=== PATIENT | female | born 1955 | race Caucasian/White ===

== ENCOUNTER → 2019-12-07 11:00 | Outpatient (BNVA) | payer MEDICARE, SELFPAY | PROVIDERS: Family Provider Family Medicine; PCP Family Medicine; Visit Provider Family Medicine | DX: I10 Essential (primary) hypertension (principal); M19.90 Unspecified osteoarthritis, unspecified site; N95.1 Menopausal and female climacteric states; J44.9 Chronic obstructive pulmonary disease, unspecified; E11.9 Type 2 diabetes mellitus without complications; E78.5 Hyperlipidemia, unspecified | CPT/HCPCS: 80053; 80061; 83036; 85025 ==

== ENCOUNTER → 2020-01-27 14:43 | Outpatient (BNVA) | payer MEDICARE, SELFPAY | PROVIDERS: Family Provider Family Medicine; PCP Family Medicine; Visit Provider Nurse Practitioner Family | DX: R07.81 Pleurodynia (principal) | CPT/HCPCS: 71046; 80053; 85025 ==

== ENCOUNTER → 2020-03-07 11:50 | Outpatient (BNVA) | payer MEDICARE, SELFPAY | PROVIDERS: Family Provider Family Medicine; PCP Family Medicine; Visit Provider Family Medicine | DX: E11.9 Type 2 diabetes mellitus without complications (principal) | CPT/HCPCS: 80053; 83036 ==

== ENCOUNTER → 2020-06-07 11:59 | Outpatient (BNVA) | payer MEDICARE, SELFPAY | PROVIDERS: Family Provider Family Medicine; PCP Family Medicine; Visit Provider Family Medicine | DX: I10 Essential (primary) hypertension (principal); E11.9 Type 2 diabetes mellitus without complications; E78.2 Mixed hyperlipidemia; J44.9 Chronic obstructive pulmonary disease, unspecified; M19.90 Unspecified osteoarthritis, unspecified site | CPT/HCPCS: 80053; 80061; 83036; 84443; 85025 ==

== ENCOUNTER → 2020-09-07 10:00 | Outpatient (BNVA) | payer MEDICARE, SELFPAY | PROVIDERS: Family Provider Family Medicine; PCP Family Medicine; Visit Provider Family Medicine | DX: L70.0 Acne vulgaris (principal); E11.9 Type 2 diabetes mellitus without complications; E78.2 Mixed hyperlipidemia; I10 Essential (primary) hypertension | CPT/HCPCS: 80053; 80061; 83036; 84443; 85025 ==

== ENCOUNTER → 2020-12-07 15:11 | Outpatient (BNVA) | payer MEDICARE, SELFPAY | PROVIDERS: Family Provider Family Medicine; PCP Family Medicine; Visit Provider Family Medicine | DX: I10 Essential (primary) hypertension (principal); J44.9 Chronic obstructive pulmonary disease, unspecified; E11.9 Type 2 diabetes mellitus without complications; E78.2 Mixed hyperlipidemia; M19.90 Unspecified osteoarthritis, unspecified site | CPT/HCPCS: 80053; 80061; 83036; 84443; 85025 ==

== ENCOUNTER → 2021-03-06 11:39 | Outpatient (BNVA) | payer MEDICARE, SELFPAY | PROVIDERS: Family Provider Family Medicine; PCP Family Medicine; Visit Provider Family Medicine | DX: E11.9 Type 2 diabetes mellitus without complications (principal); E78.2 Mixed hyperlipidemia; I10 Essential (primary) hypertension; M19.90 Unspecified osteoarthritis, unspecified site; N95.1 Menopausal and female climacteric states; J44.9 Chronic obstructive pulmonary disease, unspecified | CPT/HCPCS: 80053; 80061; 83036; 84443; 85025 ==

== ENCOUNTER → 2021-09-05 11:45 | Outpatient (BNVA) | payer MEDICARE, SELFPAY | PROVIDERS: Family Provider Family Medicine; PCP Family Medicine; Visit Provider Family Medicine | DX: E11.9 Type 2 diabetes mellitus without complications (principal); E78.5 Hyperlipidemia, unspecified; I10 Essential (primary) hypertension; J01.00 Acute maxillary sinusitis, unspecified; J44.9 Chronic obstructive pulmonary disease, unspecified; N95.1 Menopausal and female climacteric states; M19.90 Unspecified osteoarthritis, unspecified site; E78.2 Mixed hyperlipidemia | CPT/HCPCS: 80053; 80061; 83036; 85025 ==

== ENCOUNTER → 2022-01-02 09:01 | Outpatient (BNVA) | payer MEDICARE, SELFPAY | PROVIDERS: Family Provider Family Medicine; PCP Family Medicine; Visit Provider Family Medicine | DX: E11.9 Type 2 diabetes mellitus without complications (principal); I10 Essential (primary) hypertension; E78.5 Hyperlipidemia, unspecified; M19.90 Unspecified osteoarthritis, unspecified site; J44.9 Chronic obstructive pulmonary disease, unspecified; E78.2 Mixed hyperlipidemia | CPT/HCPCS: 80053; 80061; 83036; 85025 ==

== ENCOUNTER → 2022-04-03 10:34 | Outpatient (BNVA) | payer MEDICARE, SELFPAY | PROVIDERS: Family Provider Family Medicine; PCP Family Medicine; Visit Provider Family Medicine | DX: E11.9 Type 2 diabetes mellitus without complications (principal); E78.2 Mixed hyperlipidemia; I10 Essential (primary) hypertension; M79.10 Myalgia, unspecified site | CPT/HCPCS: 80053; 80061; 83036; 84443; 85025 ==

== ENCOUNTER → 2022-04-13 09:00 | Outpatient (BNVA) | payer MEDICARE, SELFPAY | PROVIDERS: Family Provider Family Medicine; PCP Family Medicine; Visit Provider Nurse Practitioner Family | DX: R07.81 Pleurodynia (principal) | CPT/HCPCS: 71046 ==

== ENCOUNTER → 2022-04-16 10:06 | Outpatient (BNVA) | payer MEDICARE, SELFPAY | PROVIDERS: Family Provider Family Medicine; PCP Family Medicine; Visit Provider Nurse Practitioner Family | DX: J18.9 Pneumonia, unspecified organism (principal) | CPT/HCPCS: 71046 ==

== ENCOUNTER → 2022-07-10 09:42 | Outpatient (BNVA) | payer MEDICARE, SELFPAY | PROVIDERS: Family Provider Family Medicine; PCP Family Medicine; Visit Provider Family Medicine | DX: E78.2 Mixed hyperlipidemia (principal); I10 Essential (primary) hypertension; E11.9 Type 2 diabetes mellitus without complications | CPT/HCPCS: 80053; 80061; 83036; 85025 ==

== ENCOUNTER → 2022-10-03 11:17 | Outpatient (BNVA) | payer MEDICARE, SELFPAY | PROVIDERS: Family Provider Family Medicine; PCP Family Medicine; Visit Provider Family Medicine | DX: E78.2 Mixed hyperlipidemia (principal); E11.9 Type 2 diabetes mellitus without complications; I10 Essential (primary) hypertension | CPT/HCPCS: 80053; 80061; 83036; 84443; 85025 ==

== ENCOUNTER → 2022-12-12 14:57 | Outpatient (BNVA) | payer MEDICARE, SELFPAY | PROVIDERS: Family Provider Family Medicine; PCP Family Medicine; Visit Provider Family Medicine | DX: S60.031A Contusion of right middle finger without damage to nail, initial encounter (principal); M19.041 Primary osteoarthritis, right hand; X58.XXXA Exposure to other specified factors, initial encounter | CPT/HCPCS: 73140 ==

== ENCOUNTER 2022-12-16 07:18 | Emergency (ER) | payer MEDICARE, SELFPAY ==
[2022-12-16 07:23] VITALS: BP 161/100; PULSE 96; RESP 18; TEMP 36.9; O2SAT 96
--- NOTE | 2022-12-16 07:32 | CTR_ITS ---
PROCEDURE INFORMATION: Exam: CTA Head With Contrast, Arteriography Exam date and time: 12/16/2022 7:52 AM Age: 67 years old Clinical indication: Pain; Headache; Additional info: FARFAN TECHNIQUE: Imaging protocol: Computed tomographic angiography of the head with contrast. Exam focused on the arteries. 3D rendering (Not supervised by radiologist): MIP and/or 3D reconstructed images were created by the technologist. Radiation optimization: All CT scans at this facility use at least one of these dose optimization techniques: automated exposure control; mA and/or kV adjustment per patient size (includes targeted exams where dose is matched to clinical indication); or iterative reconstruction. Contrast material: OMNI 350; Contrast volume: 100 ml; Contrast route: INTRAVENOUS (IV); REPORTING DATA: Count of CT and Cardiac NM exams in prior 12 months: This patient has received 0 known CTs and 0 known cardiac nuclear medicine studies in the 12 months prior to the current study. COMPARISON: No relevant prior studies available. RADIATION DOSE METRICS: Total DLP (mGy-cm): 420.68 FINDINGS: ANTERIOR CIRCULATION: Right internal carotid artery: Intracranial segment is patent with no significant stenosis. No aneurysm. Right middle cerebral artery: No occlusion or significant stenosis. No aneurysm. Right anterior cerebral artery: No occlusion or significant stenosis. No aneurysm. Left internal carotid artery: Intracranial segment is patent with no significant stenosis. No aneurysm. Left middle cerebral artery: No occlusion or significant stenosis. No aneurysm. Left anterior cerebral artery: No occlusion or significant stenosis. No aneurysm. POSTERIOR CIRCULATION: Right vertebral artery: No occlusion or significant stenosis. No aneurysm. Left vertebral artery: No occlusion or significant stenosis. No aneurysm. Basilar artery: No occlusion or significant stenosis. No aneurysm. Right posterior cerebral artery: No occlusion or significant stenosis. No aneurysm. Left posterior cerebral artery: No occlusion or significant stenosis. No aneurysm. Brain: No definite mass, mass effect, or midline shift. Cerebral ventricles: No ventriculomegaly. Bones/joints: Unremarkable. No acute fracture. Soft tissues: Unremarkable. PROCEDURE INFORMATION: Exam: CTA Neck With Contrast Exam date and time: 12/16/2022 7:52 AM Age: 67 years old Clinical indication: Pain; Headache; Additional info: FARFAN TECHNIQUE: Imaging protocol: Computed tomographic angiography of the neck with contrast. 3D rendering (Not supervised by radiologist): MIP and/or 3D reconstructed images were created by the technologist. Radiation optimization: All CT scans at this facility use at least one of these dose optimization techniques: automated exposure control; mA and/or kV adjustment per patient size (includes targeted exams where dose is matched to clinical indication); or iterative reconstruction. Contrast material: OMNI 350; Contrast volume: 100 ml; Contrast route: INTRAVENOUS (IV); REPORTING DATA: Count of CT and Cardiac NM exams in prior 12 months: This patient has received 0 known CTs and 0 known cardiac nuclear medicine studies in the 12 months prior to the current study. COMPARISON: CT chest wo con [id number] 11/27/2018 12:39 PM RADIATION DOSE METRICS: Total DLP (mGy-cm): 420.68 FINDINGS: Right common carotid artery: No stenosis. No dissection or occlusion. Right internal carotid artery: No stenosis of the extracranial segment. No dissection or occlusion. Right external carotid artery: No occlusion or stenosis of the origin. Left common carotid artery: No stenosis. No dissection or occlusion. Left internal carotid artery: No stenosis of the extracranial segment. No dissection or occlusion. Left external carotid artery: No occlusion or stenosis of the origin. Right vertebral artery: No stenosis. No dissection or occlusion. Left vertebral artery: No stenosis. No dissection or occlusion. Soft tissues: Normal. No significant soft tissue swelling. Bones/joints: No acute fracture. CT/CT angio headneck* [id number] IMPRESSION: No large vessel stenosis or occlusion. IMPRESSION: No stenosis or occlusion. REFERENCES: NASCET CRITERIA. The degree of stenosis in the cervical segment of the internal carotid artery is based on NASCET criteria. Normal is no stenosis. Mild is less than 50% stenosis. Moderate is 50-69% stenosis. Severe is 70% to 99% stenosis. Total occlusion is no detectable patent lumen.
--- NOTE | 2022-12-16 07:32 | CTR_ITS ---
PROCEDURE INFORMATION: Exam: CT Head Without Contrast Exam date and time: 12/16/2022 7:52 AM Age: 67 years old Clinical indication: Pain; Headache; Additional info: FARFAN TECHNIQUE: Imaging protocol: Computed tomography of the head without contrast. Radiation optimization: All CT scans at this facility use at least one of these dose optimization techniques: automated exposure control; mA and/or kV adjustment per patient size (includes targeted exams where dose is matched to clinical indication); or iterative reconstruction. REPORTING DATA: Count of CT and Cardiac NM exams in prior 12 months: This patient has received 0 known CTs and 0 known cardiac nuclear medicine studies in the 12 months prior to the current study. COMPARISON: No relevant prior studies available. RADIATION DOSE METRICS: Total DLP (mGy-cm): 1202.4 FINDINGS: Brain: There is mild diffuse cerebral atrophy. Patchy areas of hypoattenuation are seen in the deep white matter of the cerebral hemispheres bilaterally compatible with mild deep white matter microvascular disease. Cerebral ventricles: No ventriculomegaly. Paranasal sinuses: Visualized sinuses are unremarkable. No fluid levels. Mastoid air cells: Visualized mastoid air cells are well aerated. Bones/joints: Unremarkable. No acute fracture. Soft tissues: Unremarkable. CT/CT head wo con* [id number] IMPRESSION: There are no acute intracranial findings.
--- NOTE | 2022-12-16 07:33 | ECG_ITS ---
[facility] Test Date: 2022-12-16 Pat Name: Merlyn Angeles Department: Room: Gender: Female Audio/Visual Operator: : 1955 Requested By: Júnior Hoang Order Number: [id number] Arturo MD: Kristian Duke M.D. Measurements Intervals [place] Rate: 90 P: 31 IN: 143 QRS: 29 QRSD: 90 T: 35 QT: 349 QTc: 428 Interpretive Statements SINUS RHYTHM Compared to ECG 01/08/2015 10:30:45 No significant changes Electronically Signed On 12-16-2022 21:07:31 CDT by Kristian Duke M.D. [email or web address] residential [email or web address] private [email or web address]/store/[id number]
--- NOTE | 2022-12-16 07:33 | W.ED.HA ---
HPI - Headache General: Chief Complaint: Headache Stated Complaint: headache Time Seen by Provider: 12/16/22 07:28 Source: patient Mode of arrival: ambulatory Limitations: no limitations History of Present Illness: 67-year-old female states that she started getting a headache last night that is worsened throughout the night states headaches currently 9 out of 10 no history of headaches states she has had some high blood pressure as well as states she is just started a new medication for gout with indomethacin she has not taken any other pain meds denies any neck pain denies any fevers had some nausea denies any vomiting. Associated symptoms: Deny chest pain, fever(s), nausea, rash or vomiting Review of Systems Const: Denies: fever(s), chills or body aches Eyes: Denies: eye discomfort ENMT: Denies: throat pain or dental pain Card: Denies: chest pain Resp: Denies: dyspnea GI: Denies: abdominal pain, nausea, vomiting or diarrhea : Denies: dysuria Musc: Denies: neck pain or back pain Skin/Breast: Denies: rash Neuro: Reports: headache(s) PFSH ED PFSH: Medical History Arthritis Chronic obstructive pulmonary disease Enrolled in chronic care management Gastroesophageal reflux disease Hyperlipidemia Hypertension Lung cancer Dx in 2012. Had right lobectomy in 11/2012. No chemo or radiation tx No pertinent past medical history neghx: thyroid,dvt/pe PCP: Dr. Efrem Collazo/Jacob Type 2 diabetes mellitus without complication, without long-term current use of insulin Surgical History History of section, low transverse 2 sections (both vertical incisions) History of hysterectomy ZAIRA (still has ovaries). Performed due to fibroids and heavy bleeding. Pfannenstiel incision. History of lobectomy of lung (~11/2012) Lobectomy for lung cancer will get more details on treatment/surgery with medical records Family History Grandfather Colon cancer Paternal-- dx age 70's Son Colon cancer dx age 47 Mother Diabetes Hypercholesteremia Hypertension Father Diabetes Hypercholesteremia Heart disease Stroke Hypertension Sister Ovarian cancer dx age 30's Denies family history of Breast cancer Uterine cancer Thyroid disease Social History Smoking and tobacco status: former smoker Substance/Drug Use: never Physical Exam Const: COMMON NORMALS: patient oriented x3 and healthy appearing GENERAL APPEARANCE: in distress HENMT: COMMON NORMALS: normocephalic and atraumatic HEAD & SCALP: normocephalic and atraumatic Eye: COMMON NORMALS: Equal, round and reactive pupils present and EOMs intact bilaterally PUPIL: Yes Equal, round and reactive pupils present Neck/C-Spine: COMMON NORMALS: full ROM, supple and no meningeal signs Chest: COMMONS NORMALS: normal inspection of the chest and normal palpation of entire chest wall Resp: COMMON NORMALS: normal respiratory effort, No retractions, No use of accessory muscles and clear to auscultation bilaterally AUSCULTATION: clear to auscultation bilaterally Cardio: COMMON NORMALS: regular rate, regular rhythm and No murmurs present (Cardio) RATE: regular rate RHYTHM: regular rhythm GI: COMMON NORMALS: Normal to inspection, nondistended, normoactive bowel sounds present, Soft to palpation, non-tender and no masses PALPATION: Yes Soft to palpation Extremity: COMMON NORMALS: normal to inspection and full ROM Neuro: COMMON NORMALS: patient oriented x3, moves all extremities and no focal motor deficits MENINGEAL SIGNS: Yes no meningeal signs Psych: COMMON NORMALS: mental status grossly normal, Normal thought process present and cooperative THOUGHT PROCESS: Normal thought process present Skin: COMMON NORMALS: no rashes or lesions noted and no wounds GENERAL SKIN EXAM: no rashes or lesions noted Course Vital Signs: Vital signs: Vital Signs Temperature 98.5 F 12/16/22 07:23 Pulse Rate 96 12/16/22 07:23 Respiratory Rate 18 12/16/22 07:23 Blood Pressure 183/96 12/16/22 08:48 Pulse Oximetry 95 12/16/22 08:48 Oxygen Delivery Me thod Room Air 12/16/22 08:48 MDM - Headache Medical Decision Making Patient presents here with headache since resolved she has no signs of subarachnoid hemorrhage or meningitis her CT head along with CT angio normal blood works all normal she is stable for discharge she is to follow-up with PCP and return if worsening. Medical Records I reviewed the patient's medical records. Lab Data I reviewed the patient's lab results. 12/16/22 07:45 12/16/22 07:[address] 12/16/22 07:32 IMPRESSION: There are no acute intracranial findings. Head/Neck CTA 12/16/22 07:32 IMPRESSION: No large vessel stenosis or occlusion. IMPRESSION: No stenosis or occlusion. REFERENCES: NASCET CRITERIA. The degree of stenosis in the cervical segment of the internal carotid artery is based on NASCET criteria. Normal is no stenosis. Mild is less than 50% stenosis. Moderate is 50-69% stenosis. Severe is 70% to 99% stenosis. Total occlusion is no detectable patent lumen. Chest X-Ray 12/16/22 08:06 IMPRESSION: Opacities superimposed over the left hemidiaphragm likely representing atelectasis although a left basilar infiltrate and pneumonia cannot be entirely excluded. Laboratory Results WBC 8.4 10^3/uL (4.0-10.0) 12/16/22 07:45 RBC 4.55 10^6/uL (4.1-5.3) 12/16/22 07:45 Hgb 13.3 g/dL (11.5-15.3) 12/16/22 07:45 Hct 39.7 % (37.0-47.0) 12/16/22 07:45 MCV 87.3 fl (81-99) 12/16/22 07:45 MCH 29.2 pg (28.0-34.0) 12/16/22 07:45 MCHC 33.5 g/dL (30.0-36.0) 12/16/22 07:45 RDW 12.5 % (12.1-15.1) 12/16/22 07:45 Plt Count 200 10^3/cmm (130-400) 12/16/22 07:45 MPV 9.6 fL (7.4-10.4) 12/16/22 07:45 Neut % (Auto) 78.4 % 12/16/22 07:45 Lymph % (Auto) 6.9 % 12/16/22 07:45 [place] % (Auto) 13.3 % 12/16/22 07:45 Eos % (Auto) 0.8 % 12/16/22 07:45 Baso % (Auto) 0.2 % 12/16/22 07:45 Neut # (Auto) 6.58 10^3/uL (1.8-7.7) 12/16/22 07:45 Lymph # (Auto) 0.6 10^3/uL (0.8-4.8) L 12/16/22 07:45 [place] # (Auto) 1.1 10^3/uL (0.2-0.9) H 12/16/22 07:45 Eos # (Auto) 0.1 10^3/uL (0.0-0.8) 12/16/22 07:45 Baso # (Auto) 0.0 10^3/uL (0.0-0.1) 12/16/22 07:45 Nucleated RBC % (auto) 0 % 12/16/22 07:45 Nucleated RBCs # 0.0 /100WBC 12/16/22 07:45 Sodium 137 mmol/L (136-145) 12/16/22 07:45 Potassium 3.8 mmol/L (3.5-5.1) 12/16/22 07:45 Chloride 100 mmol/L (98-107) 12/16/22 07:45 Carbon Dioxide 23 mmol/L (22-29) 12/16/22 07:45 Anion Gap 17.8 (5-19) 12/16/22 07:45 BUN 5 mg/dL (8-23) L 12/16/22 07:45 Creatinine 0.4 mg/dL (0.5-0.9) L 12/16/22 07:45 GFR Calculation 159.2 mL/min (90-130) H 12/16/22 07:45 Glucose 126 mg/dL (65-115) H 12/16/22 07:45 Calculated Osmolality 283 mOsm/kg (285-295) L 12/16/22 07:45 Calcium 8.9 mg/dL (8.5-10.5) 12/16/22 07:45 Total Bilirubin 0.4 mg/dL (0.15-1.2) 12/16/22 07:45 AST 22 U/L (0-32) 12/16/22 07:45 ALT 23 U/L (0-33) 12/16/22 07:45 Alkaline Phosphatase 133 U/L (35-105) H 12/16/22 07:45 Total Protein 6.9 g/dL (6.6-8.7) 12/16/22 07:45 Albumin 4.1 g/dL (3.5-5.2) 12/16/22 07:45 Globulin 2.8 g/dL (1.3-4.6) 12/16/22 07:45 EKG Data EKG 1: I personally reviewed and interpreted this EKG as follows: EKG interpretation date: 12/16/22 EKG interpretation time: 07:38 Interpretation: nsr hr [address] or t wave abnormalities qrs 90 qtc 397 Discharge Plan Discharge Patient Disposition: Home Clinical Impression: Headache, Gout Condition: Stable Prescriptions: New hydrocodone-acetaminophen 5-325 mg tablet 1 tab PO Q6H PRN (Reason: pain) Qty: 14 0RF No Action naproxen 500 mg tablet 500 mg PO .every 12 hours PRN (Reason: pain) Qty: 90 1RF albuterol sulfate [Ventolin HFA] 90 mcg/actuation HFA aerosol inhaler 1 inh INHALATION QID Qty: 18 3RF estradiol [Estrace] 0.01 % (0.1 mg/gram) cream 0.5 g VAGINAL .twice weekly Qty: 42.5 3RF rosuvastatin [Crestor] 5 mg tablet 5 mg PO DAILY Qty: 90 2RF Eucrisa 2 % ointment 1 applic TOPICAL BID PRN (Reason: atopic dermatitis) Qty: 100 3RF diclofenac sodium 1 % gel 2 g topical QID Qty: 100 11RF Rx Instructions: apply to single elbow,or hip valsartan 320 mg tablet 320 mg PO DAILY Qty: 90 2RF indomethacin 75 mg capsule, extended release 75 mg PO BID Qty: 30 0RF Discharge Orders: Discharge ED (Routine); Ordered 12/16/22 Ordered By: Júnior Hoang Referrals: Brittani Topete MD [Primary Care Provider] - 1-3 days Discharge Diet: Advance as tolerated Discharge Activity: Resume usual activity Patient Instructions: General Headache (ED) Coding Level of Care Code ED Medical Bill Processor for Trishag Butch
[2022-12-16] MEDS: metoclopramide 5 mg/mL SDV 2 mL 10 MG IVP (07:42)
[2022-12-16] MEDS: diphenhydrAMINE 50 mg/mL SDV 1mL IVP (07:42)
[2022-12-16 07:55] LABS: Basophils % 0.2 %; Eosinophils # 0.1 10^3/uL (0.0-0.8); Eosinophils % 0.8 %; Hematocrit 39.7 % (37.0-47.0); Hemoglobin 13.3 g/dL (11.5-15.3); Lymphocytes # 0.6 10^3/uL (0.8-4.8); Lymphocytes % 6.9 %; Mean Corpuscular HGB Conc 33.5 g/dL (30.0-36.0); Mean Corpuscular Hemoglobin 29.2 pg (28.0-34.0); Mean Corpuscular Volume 87.3 fl (81-99); Mean Platelet Volume 9.6 fL (7.4-10.4); Monocytes # 1.1 10^3/uL (0.2-0.9); Monocytes % 13.3 %; Neutrophils # 6.58 10^3/uL (1.8-7.7); Neutrophils % 78.4 %; Nucleated Red Blood Cells % 0 %; Platelet Count 200 10^3/cmm (130-400); Red Blood Count 4.55 10^6/uL (4.1-5.3); Red Cell Distribution Width 12.5 % (12.1-15.1); White Blood Count 8.4 10^3/uL (4.0-10.0)
[2022-12-16] MEDS: iohexol 350 mg/mL 500 mL Btl (per mL) IV (08:01)
--- NOTE | 2022-12-16 08:06 | XRR_ITS ---
PROCEDURE INFORMATION: Exam: XR Chest Exam date and time: 12/16/2022 8:27 AM Age: 67 years old Clinical indication: Pain; Other: Headache; Additional info: FARFAN TECHNIQUE: Imaging protocol: Radiologic exam of the chest. Views: 1 view. COMPARISON: CR XR chest 2V* [id number] 04/16/2022 10:11 AM FINDINGS: Lungs: There are opacities at superimposed over the left hemidiaphragm likely representing atelectasis. A left basilar infiltrate and pneumonia cannot be entirely excluded. Pleural spaces: Unremarkable. No pleural effusion. No pneumothorax. Heart/Mediastinum: Unremarkable. No cardiomegaly. Bones/joints: Unremarkable. XR/XR chest 1V portable [id number] IMPRESSION: Opacities superimposed over the left hemidiaphragm likely representing atelectasis although a left basilar infiltrate and pneumonia cannot be entirely excluded.
[2022-12-16 08:07] VITALS: O2SAT 95
[2022-12-16 08:12] LABS: Alanine Aminotransferase 23 U/L (0-33); Albumin Level 4.1 g/dL (3.5-5.2); Alkaline Phosphatase 133 U/L (35-105); Anion Gap 17.8 (5-19); Aspartate Amino Transferase 22 U/L (0-32); Blood Urea Nitrogen 5 mg/dL (8-23); Calcium 8.9 mg/dL (8.5-10.5); Carbon Dioxide 23 mmol/L (22-29); Chloride 100 mmol/L (98-107); Creatinine Clr Calc Pharmacy 73.1966; Globulin 2.8 g/dL (1.3-4.6); Glomerular Filtration Rate 159.2 mL/min (90-130); Glucose 126 mg/dL (65-115); Osmolality Calculated 283 mOsm/kg (285-295); Potassium 3.8 mmol/L (3.5-5.1); Sodium 137 mmol/L (136-145); Total Bilirubin 0.4 mg/dL (0.15-1.2); Total Protein 6.9 g/dL (6.6-8.7)
[2022-12-16] MEDS: hyDRALAzine 20 mg/mL INJ 1 mL 10 MG IVP (08:18)
[2022-12-16] MEDS: ketorolac 30 mg/mL INJ 15 MG IVP (08:45)
[2022-12-16] MEDS: morphine 4 mg/mL SDV 1 mL IVP (08:45)
[2022-12-16] MEDS: ondansetron 2 mg/ML SDV 2 mL 4 MG IVP (08:45)
[2022-12-16 08:48] VITALS: BP 183/96; O2SAT 95
== END 2022-12-16 09:29 | disposition home or self-care (01) ==
PROVIDERS: Emergency Provider Emergency Medicine; PCP Family Medicine
DX: R51.9 Headache, unspecified (principal); M10.9 Gout, unspecified; Z87.891 Personal history of nicotine dependence; Z90.2 Acquired absence of lung [part of]; J44.9 Chronic obstructive pulmonary disease, unspecified; E78.5 Hyperlipidemia, unspecified; I10 Essential (primary) hypertension; E11.9 Type 2 diabetes mellitus without complications; Z85.118 Personal history of other malignant neoplasm of bronchus and lung
CPT/HCPCS: 70450; 70496; 70498; 71045; 80053; 85025; 93005; 96374; 96375; 99285; J0360; J1200; J1885; J2270; J2405; J2765; Q9967

== ENCOUNTER → 2022-12-18 15:39 | Outpatient (BNVA) | payer MEDICARE, SELFPAY | PROVIDERS: PCP Family Medicine; Visit Provider Family Medicine | DX: J98.8 Other specified respiratory disorders (principal); Z20.822 Contact with and (suspected) exposure to COVID-19 | CPT/HCPCS: 71046; 87400; 87426 ==

== ENCOUNTER → 2023-01-25 12:08 | Outpatient (BNVA) | payer MEDICARE, SELFPAY | PROVIDERS: PCP Family Medicine; Visit Provider Family Medicine | DX: E11.9 Type 2 diabetes mellitus without complications (principal); E78.5 Hyperlipidemia, unspecified; I10 Essential (primary) hypertension; M19.90 Unspecified osteoarthritis, unspecified site; J44.9 Chronic obstructive pulmonary disease, unspecified; N95.1 Menopausal and female climacteric states | CPT/HCPCS: 80053; 80061; 83036; 84443; 85025 ==

== ENCOUNTER 2023-04-05 11:21 | Emergency (ER) | payer MEDICARE, SELFPAY ==
[2023-04-05 11:49] VITALS: BMI 29.9
[2023-04-05 11:52] VITALS: BP 192/117; PULSE 100; RESP 18; TEMP 36.7; O2SAT 98
--- NOTE | 2023-04-05 11:52 | ECG_ITS ---
[facility] Test Date: 2023-04-05 Pat Name: Merlyn Angeles Department: Room: Gender: Female Financial Planner: : 1955 Requested By: Luan Culver Order Number: [id number] Arturo MD: Lacy Hernández M.D. Measurements Intervals [place] Rate: 80 P: 58 ND: 147 QRS: 60 QRSD: 95 T: 39 QT: 360 QTc: 416 Interpretive Statements SINUS RHYTHM Compared to ECG 12/16/2022 07:38:21 No significant changes Electronically Signed On 04-05-2023 13:31:41 CDT by Lacy Hernández M.D. [id number]
--- NOTE | 2023-04-05 11:55 | XR_ITS ---
WS: [id number] Exam: XR chest 1V portable [id number] Date/Time of Exam: 04/05/2023 11:55 AM Reason For Exam: htn chest pain Comparison 12/18/2022. LEFT basal pleural effusion noted with compressive atelectasis. The lungs are otherwise clear. No pne umothorax. Cardiomediastinal silhouette is unremarkable. Surgical clips at the RIGHT hilum. Bony stru ctures are intact. Probable hiatal hernia. IMPRESSION: 1. Small LEFT basal pleural effusion with compressive atelectasis. 2. Probable hiatal hernia.
[2023-04-05 12:07] LABS: Basophils % 0.5 %; Eosinophils # 0.2 10^3/uL (0.0-0.8); Hematocrit 43.3 % (36-47); Lymphocytes # 1.9 10^3/uL (0.8-4.8); Lymphocytes % 23.2 %; Mean Corpuscular HGB Conc 33.5 g/dL (30-55); Mean Corpuscular Hemoglobin 29.6 pg (27-33); Mean Corpuscular Volume 88.4 fl (85-98); Mean Platelet Volume 9.8 fL (7.4-10.4); Monocytes # 0.7 10^3/uL (0.2-0.9); Monocytes % 8.6 %; Neutrophils # 5.18 10^3/uL (1.8-7.7); Neutrophils % 64.5 %; Nucleated Red Blood Cells % 0 %; Platelet Count 225 10^3/cmm (157-399); Red Cell Distribution Width 12.9 % (12.1-15.1); White Blood Count 8.03 10^3/uL (3.29-11.43)
--- NOTE | 2023-04-05 12:10 | W.ED.GENADLT ---
HPI - General Adult General: Chief complaint: General Medical Stated complaint: High bloodpressure, Gisselle Pearson sent Time Seen by Provider: 04/05/23 11:54 History of Present Illness: Patient arrives from [facility] office for high blood pressure with a headache dizziness shakiness and blurriness. Denies chest pain at this time but she says she has been dealing with a blood pressure medicine ups and downs with a down still being high approximately 130. Patient is on valsartan 320 mg 1 pill once a day and has been taking all of her medications and not missing any doses. Patient admits that sometimes even taking part of another pill when her blood pressure stays high. Review of Systems General: Reports: 10 or more systems reviewed and unremarkable except in HPI and below PFSH ED PFSH: Medical History Arthritis Chronic obstructive pulmonary disease Enrolled in chronic care management Gastroesophageal reflux disease Hyperlipidemia Hypertension Lung cancer Dx in 2012. Had right lobectomy in 11/2012. No chemo or radiation tx No pertinent past medical history neghx: thyroid,dvt/pe PCP: Dr. Efrem Collazo/Jacob Type 2 diabetes mellitus without complication, without long-term current use of insulin Surgical History History of section, low transverse 2 sections (both vertical incisions) History of hysterectomy ZAIRA (still has ovaries). Performed due to fibroids and heavy bleeding. Pfannenstiel incision. History of lobectomy of lung (~11/2012) Lobectomy for lung cancer will get more details on treatment/surgery with medical records Family History Grandfather Colon cancer Paternal-- dx age 70's Son Colon cancer dx age 47 Mother Diabetes Hypercholesteremia Hypertension Father Diabetes Hypercholesteremia Heart disease Stroke Hypertension Sister Ovarian cancer dx age 30's Denies family history of Breast cancer Uterine cancer Thyroid disease Physical Exam Const: COMMON NORMALS: no acute distress, average body habitus, patient oriented x3, no limitations, healthy appearing, alert and well nourished HENMT: COMMON NORMALS: normocephalic, atraumatic, hearing grossly normal bilaterally, external ears normal, Normal external nose present and moist oral mucous membranes HEAD & SCALP: normocephalic and atraumatic NOSE: Normal external nose present EXTERNAL EAR: Yes external ears normal Eye: COMMON NORMALS: Equal, round and reactive pupils present, EOMs intact bilaterally, conjunctivae normal and no scleral icterus CONJUNCTIVA: Yes conjunctivae normal PUPIL: Yes Equal, round and reactive pupils present Neck/C-Spine: COMMON NORMALS: full ROM, no lymphadenopathy, supple, no meningeal signs, no JVD and Thyroid normal THYROID: Thyroid normal Lymph: LYMPHATIC: no lymphadenopathy noted Chest: COMMONS NORMALS: normal inspection of the chest and normal palpation of entire chest wall Resp: COMMON NORMALS: normal respiratory effort, No retractions, No use of accessory muscles and clear to auscultation bilaterally AUSCULTATION: clear to auscultation bilaterally Cardio: COMMON NORMALS: no JVD, regular rate, regular rhythm, S1 normal heart sound present, S2 normal heart sound present, No gallops present (Cardio), No clicks present (Cardio), No murmurs present (Cardio) and No rub (Cardio) RATE: regular rate RHYTHM: regular rhythm HEART SOUNDS: S1 normal heart sound present and S2 normal heart sound present GI: COMMON NORMALS: Normal to inspection, nondistended, normoactive bowel sounds present, Soft to palpation, non-tender, No hepatosplenomegaly present and no masses PALPATION: Yes Soft to palpation and Yes No hepatosplenomegaly present : COMMON NORMALS: Yes no CVA tenderness BLADDER/KIDNEY EXAM: Yes no CVA tenderness Back/Pelvis: COMMON NORMALS: no CVA tenderness Neuro: COMMON NORMALS: patient oriented x3 SENSORIUM/ORIENTATION: Yes alert MENINGEAL SIGNS: Yes no meningeal signs Course Vital Signs: Vital signs: Vital Signs Temperature 98.0 F 04/05/23 11:52 Pulse Rate 100 04/05/23 11:52 Respiratory Rate 18 04/05/23 11:52 Blood Pressure 194/126 04/05/23 13:08 Pulse Oximetry 98 04/05/23 11:52 Oxygen Delivery Me thod Room Air 04/05/23 11:52 [facility] - General Adult Medical Decision Making Patient sent over here from her family practice doctor with hypertensive crisis that included headaches dizziness shakiness. Cardiac work-up was obtained. All of which essentially was benign. Patient was given 20 mg of hydralazine and 0.1 mg clonidine and per patient's blood pressure improved to 136/85. Patient be discharged to home to follow back up with her PCP. Patient also be discharged on clonidine 0.1 mg to take when her blood pressure is greater than 150 systolic. Differential Diagnosis Blood pressure, congestive heart failure, angina, shortness of breath Medical Records I reviewed the patient's medical records. Lab Data I reviewed the patient's lab results. 04/05/23 11:55 04/05/23 11:55 Laboratory Results WBC 8.03 10^3/uL (3.29-11.43) 04/05/23 11:55 RBC 4.90 10^6/uL (3.85-5.65) 04/05/23 11:55 Hgb 14.50 g/dL (11.27-16.99) 04/05/23 11:55 Hct 43.3 % (36-47) 04/05/23 11:55 MCV 88.4 fl (85-98) 04/05/23 11:55 MCH 29.6 pg (27-33) 04/05/23 11:55 MCHC 33.5 g/dL (30-55) 04/05/23 11:55 RDW 12.9 % (12.1-15.1) 04/05/23 11:55 Plt Count 225 10^3/cmm (157-399) 04/05/23 11:55 MPV 9.8 fL (7.4-10.4) 04/05/23 11:55 Neut % (Auto) 64.5 % 04/05/23 11:55 Lymph % (Auto) 23.2 % 04/05/23 11:55 [place] % (Auto) 8.6 % 04/05/23 11:55 Eos % (Auto) 3.0 % 04/05/23 11:55 Baso % (Auto) 0.5 % 04/05/23 11:55 Neut # (Auto) 5.18 10^3/uL (1.8-7.7) 04/05/23 11:55 Lymph # (Auto) 1.9 10^3/uL (0.8-4.8) 04/05/23 11:55 [place] # (Auto) 0.7 10^3/uL (0.2-0.9) 04/05/23 11:55 Eos # (Auto) 0.2 10^3/uL (0.0-0.8) 04/05/23 11:55 Baso # (Auto) 0.0 10^3/uL (0.0-0.1) 04/05/23 11:55 Nucleated RBC % (auto) 0 % 04/05/23 11:55 Nucleated RBCs # 0.0 /100WBC 04/05/23 11:55 Sodium 142 mmol/L (136-145) 04/05/23 11:55 Potassium 4.1 mmol/L (3.5-5.1) 04/05/23 11:55 Chloride 107 mmol/L (98-107) 04/05/23 11:55 Carbon Dioxide 26 mmol/L (22-29) 04/05/23 11:55 Anion Gap 13.1 (5-19) 04/05/23 11:55 BUN 14 mg/dL (8-23) 04/05/23 11:55 Creatinine 0.5 mg/dL (0.5-0.9) 04/05/23 11:55 GFR Calculation 123.1 mL/min (90-130) 04/05/23 11:55 Glucose 80 mg/dL (65-115) 04/05/23 11:55 Calculated Osmolality 293 mOsm/kg (285-295) 04/05/23 11:55 Calcium 9.5 mg/dL (8.5-10.5) 04/05/23 11:55 Total Bilirubin 0.4 mg/dL (0.15-1.2) 04/05/23 11:55 AST 21 U/L (0-32) 04/05/23 11:55 ALT 26 U/L (0-33) 04/05/23 11:55 Alkaline Phosphatase 136 U/L (35-105) H 04/05/23 11:55 Troponin T Baseline 12 ng/L (0-10) H 04/05/23 11:55 Troponin T 120 Minute 8.48 ng/L (0-10) 04/05/23 13:37 Total Protein 6.8 g/dL (6.6-8.7) 04/05/23 11:55 Albumin 4.5 g/dL (3.5-5.2) 04/05/23 11:55 Globulin 2.3 g/dL (1.3-4.6) 04/05/23 11:55 Discharge Plan Discharge Patient Disposition: Home Clinical Impression: Hypertension Condition: Stable Prescriptions: New clonidine HCl 0.1 mg tablet 0.1 mg PO Q8H PRN (Reason: For blood pressure greater than 150 systolic) Qty: 30 0RF No Action tizanidine 4 mg tablet 4 mg PO Q8H PRN (Reason: muscle spasticity) Qty: 20 0RF estradiol [Estrace] 0.01 % (0.1 mg/gram) cream 0.5 g VAGINAL .twice weekly Qty: 42.5 3RF Eucrisa 2 % ointment 1 applic TOPICAL BID PRN (Reason: atopic dermatitis) Qty: 100 3RF CoQ-10 100 mg Capsule 100 mg PO DAILY valsartan 320 mg tablet 320 mg PO BEDTIME@19 diclofenac sodium 75 mg tablet,delayed release (DR/EC) 75 mg PO BID Rx Instructions: . no naproxen or nsaids Ventolin HFA 90 mcg/actuation HFA aerosol inhaler 1 inh INHALATION QID PRN (Reason: Shortness Of Breath) Crestor 5 mg tablet 5 mg PO BEDTIME@19 diclofenac sodium 1 % gel 2 g topical QID PRN (Reason: Pain) Rx Instructions: apply to single elbow,or hip Discharge Orders: Discharge ED (Routine); Ordered 04/05/23 Ordered By: Luan Culver Referrals: Brittani Topete MD [Primary Care Provider] - 1 week Patient Instructions: Hypertension (ED) Activity Restrictions/Additional Instructions: He had been prescribed clonidine 0.1 mg tablets to take if your blood pressures top number is greater than 150. You may take this up to 3 times a day as needed. Please keep a blood pressure log and take it to your family practice doctor at your next visit. Please call their office and set up an appointment within the next 7 days. Continue taking all your other medicine as previously prescribed. Coding Level of Care Code ED Various Exceptionalities Teacher for Kandace Rae
[2023-04-05 12:42] LABS: Troponin(5th) Baseline 12 ng/L (0-10)
[2023-04-05 12:44] LABS: Alanine Aminotransferase 26 U/L (0-33); Albumin Level 4.5 g/dL (3.5-5.2); Alkaline Phosphatase 136 U/L (35-105); Anion Gap 13.1 (5-19); Aspartate Amino Transferase 21 U/L (0-32); Blood Urea Nitrogen 14 mg/dL (8-23); Calcium 9.5 mg/dL (8.5-10.5); Carbon Dioxide 26 mmol/L (22-29); Chloride 107 mmol/L (98-107); Globulin 2.3 g/dL (1.3-4.6); Glomerular Filtration Rate 123.1 mL/min (90-130); Glucose 80 mg/dL (65-115); Osmolality Calculated 293 mOsm/kg (285-295); Potassium 4.1 mmol/L (3.5-5.1); Sodium 142 mmol/L (136-145); Total Bilirubin 0.4 mg/dL (0.15-1.2); Total Protein 6.8 g/dL (6.6-8.7)
--- NOTE | 2023-04-05 12:58 | ECG_ITS ---
[facility] Test Date: 2023-04-05 Pat Name: Merlyn Angeles Department: Room: Gender: Female Doffer: : 1955 Requested By: Luan Culver Order Number: [id number] Arturo MD: Lacy Hernández M.D. Measurements Intervals [place] Rate: 100 P: 71 NE: 154 QRS: 50 QRSD: 98 T: 59 QT: 341 QTc: 440 Interpretive Statements SINUS TACHYCARDIA POSSIBLE LEFT ATRIAL ENLARGEMENT [-0.1mV P-WAVE IN V1/V2] INCOMPLETE RIGHT BUNDLE BRANCH BLOCK Compared to ECG 12/16/2022 07:38:21 Incomplete right bundle-branch block now present Sinus rhythm no longer present Electronically Signed On 04-05-2023 13:02:30 CDT by Lacy Hernández M.D. [id number]
[2023-04-05 13:08] VITALS: BP 194/126
[2023-04-05] MEDS: cloNIDine 0.1 mg Tablet PO (13:08)
[2023-04-05] MEDS: hyDRALAzine 20 mg/mL INJ 1 mL IVP (13:09)
[2023-04-05 14:30] LABS: Troponin 5 2HR 8.48 ng/L (0-10); Troponin 5 2HR Delta -3.52 ABS# (0-10)
[2023-04-05 14:47] VITALS: BP 150/60; PULSE 96
[2023-04-08 11:36] LABS: Glucose Point of Care 110 mg/dL (70-110)
== END 2023-04-05 14:48 | disposition home or self-care (01) ==
PROVIDERS: Emergency Provider Emergency Medicine; PCP Family Medicine
DX: I10 Essential (primary) hypertension (principal); J44.9 Chronic obstructive pulmonary disease, unspecified; E78.5 Hyperlipidemia, unspecified; E11.9 Type 2 diabetes mellitus without complications; Z85.118 Personal history of other malignant neoplasm of bronchus and lung
CPT/HCPCS: 36415; 36416; 71045; 80053; 82962; 84484; 85025; 93005; 96374; 99285; J0360

== ENCOUNTER → 2023-04-26 10:45 | Outpatient (BNVA) | payer MEDICARE, SELFPAY | PROVIDERS: PCP Family Medicine; Visit Provider Family Medicine | DX: E11.9 Type 2 diabetes mellitus without complications (principal); I10 Essential (primary) hypertension | CPT/HCPCS: 80053; 83036 ==

== ENCOUNTER → 2023-07-15 11:22 | Outpatient (BNVA) | payer MEDICARE, SELFPAY | PROVIDERS: PCP Family Medicine; Visit Provider Nurse Practitioner Family | DX: E11.9 Type 2 diabetes mellitus without complications (principal); I10 Essential (primary) hypertension; E78.2 Mixed hyperlipidemia | CPT/HCPCS: 80053; 80061; 83036; 85025 ==

== ENCOUNTER → 2023-10-09 10:32 | Outpatient (BNVA) | payer MEDICARE, SELFPAY | PROVIDERS: PCP Family Medicine; Visit Provider Family Medicine | DX: I10 Essential (primary) hypertension (principal); E11.9 Type 2 diabetes mellitus without complications; C34.90 Malignant neoplasm of unspecified part of unspecified bronchus or lung; E78.2 Mixed hyperlipidemia | CPT/HCPCS: 80053; 83036; 84443; 85025 ==

== ENCOUNTER → 2024-01-13 10:33 | Outpatient (BNVA) | payer MEDICARE, SELFPAY | PROVIDERS: PCP Family Medicine; Visit Provider Family Medicine | DX: L98.9 Disorder of the skin and subcutaneous tissue, unspecified (principal); E78.2 Mixed hyperlipidemia; I10 Essential (primary) hypertension; E11.9 Type 2 diabetes mellitus without complications; N95.1 Menopausal and female climacteric states; J44.9 Chronic obstructive pulmonary disease, unspecified | CPT/HCPCS: 80053; 80061; 83036; 84443; 85025 ==

== ENCOUNTER → 2024-04-14 13:22 | Outpatient (BNVA) | payer MEDICARE, SELFPAY | PROVIDERS: PCP Family Medicine; Visit Provider Family Medicine | DX: I10 Essential (primary) hypertension (principal); E78.2 Mixed hyperlipidemia | CPT/HCPCS: 80053; 80061; 84443; 85025 ==

== ENCOUNTER 2024-05-10 13:37 | Emergency (ER) | payer MEDICARE, SELFPAY ==
[2024-05-10] VITALS (7 sets, daily range): BP systolic 134–176; BP diastolic 89–102; PULSE 79–94; RESP 18; TEMP 36.7; O2SAT 96–100; BMI 28.6
--- NOTE | 2024-05-10 13:50 | ECG_ITS ---
[facility] Test Date: 2024-05-10 Pat Name: Merlyn Angeles Department: Room: Gender: Female Senior Hadoop Developer: : 1955 Requested By: Luan Culver Order Number: [id number] Arturo MD: Kristian Duke M.D. Measurements Intervals [place] Rate: 87 P: 37 HI: 163 QRS: 7 QRSD: 104 T: 38 QT: 365 QTc: 441 Interpretive Statements SINUS RHYTHM Compared to ECG 04/05/2023 12:58:23 Sinus tachycardia no longer present Incomplete right bundle-branch block no longer present Electronically Signed On 05-10-2024 22:41:16 CDT by Kristian Duke M.D. [id number]
--- NOTE | 2024-05-10 13:50 | XRR_ITS ---
PROCEDURE INFORMATION: Exam: XR Chest Exam date and time: 05/10/2024 1:57 PM Age: 68 years old Clinical indication: Pain; Shortness of breath; Chest pressure; Additional info: Chest pain TECHNIQUE: Imaging protocol: Radiologic exam of the chest. Views: 1 view. COMPARISON: CR XR chest 1V portable [id number] 04/05/2023 12:01 PM FINDINGS: Lungs: See Heart/Mediastinum finding. Pleural spaces: Unremarkable. No pleural effusion. No pneumothorax. Heart/Mediastinum: There is a suggestion of air-filled tubular vertical structure in the midline which may represent dilated esophagus. Considerations include reflux disease however distal esophageal obstruction cannot be excluded. Additional esophageal assessment should be considered. Cardiac silhouette is somewhat magnified by technique but is probably mildly enlarged. No obvious vascular congestion. Ill-defined opacity along the left cardiac border is noted which may have been present on prior exam. This could represent small atelectasis/pneumonia however neoplastic process cannot be excluded. CT correlation may be helpful. Right lung is clear. Right hilar surgical clips are again noted. Bones/joints: No acute findings. XR/XR chest 1V portable [id number] IMPRESSION: 1. Left basilar opacity adjacent to left heart border. See discussion above. 2. Probably dilated air-filled esophagus. See discussion above. Follow up assessment should be considered.
--- NOTE | 2024-05-10 14:28 | ED_ITS ---
Documented by User: Luan Culver DO 05/10/24 14:29 HPI - Chest Pain 2 General: Chief Complaint: Chest Pain Stated Complaint: SOB - COPD, Sharp pains Time Seen by Provider: 05/10/24 13:51 History of Present Illness: Patient presents to the ER with complaints of shortness of breath chest pain anxiety. Has been having symptoms since about 1:00 this morning. Patient said it started in her left shoulder blade area and wraps around to her left breast area. She tried heating pad which made it a little bit better but then it came back she tried a hot shower which made it worse. She does have a history of pleurisy and she said this feels somewhat like it. Is gotten worse throughout the day. Patient does states has been having fever and chills, and a cough. Related Data Home Medications Medication Instructions Recorded Confirmed coenzyme Q10 100 mg capsule 100 mg PO DAILY 04/05/23 04/21/24 (CoQ-10) Previous Rx's Medication Instructions Recorded diclofenac sodium 1 % topical gel 2 g topical QID PRN Pain #100 grams 01/13/24 diclofenac sodium 75 mg See Rx Instructions .Route 01/13/24 tablet,delayed release .COMPLEX #60 tabs albuterol sulfate 90 mcg/actuation 1 inh inhalation QID PRN Shortness 04/14/24 aerosol inhaler (Ventolin HFA) Of Breath #18 grams amlodipine 2.5 mg tablet See Rx Instructions .Route 04/14/24 .COMPLEX #90 tabs clonidine HCl 0.1 mg tablet 0.1 mg PO Q8H PRN For blood 04/14/24 pressure greater than 150 systolic #30 tabs estradiol 0.01% (0.1 mg/gram) 0.5 g vaginal .twice weekly #42.5 04/14/24 vaginal cream (Estrace) grams fluticasone propionate 115 2 puff inhalation BID #12 grams 04/14/24 mcg-salmeterol 21 mcg/actuation HFA inhaler (Advair HFA) rosuvastatin 10 mg tablet 10 mg PO DAILY #90 tabs 04/14/24 valsartan 320 mg tablet 320 mg PO BEDTIME@19 #90 tabs 04/14/24 azithromycin 250 mg tablet See Rx Instructions PO .COMPLEX #6 05/10/24 tabs lansoprazole 30 mg capsule,delayed 30 mg PO DAILY #30 caps 05/10/24 release (Prevacid) sucralfate 1 gram tablet 1 g PO TID 4 weeks #84 tabs 05/10/24 Allergies Allergy/AdvReac Type Severity Reaction Status Date / Time codeine Allergy rash Verified 05/10/24 13:47 Penicillins Allergy rash and Verified 05/10/24 13:47 looses taste Sulfa (Sulfonamide Allergy rash Verified 05/10/24 13:47 Antibiotics) Review of Systems 2 General: Reports: 10 or more systems reviewed and unremarkable except in HPI and below PFSH ED 2 PFSH: Medical History No pertinent past medical history neghx: thyroid,dvt/pe PCP: Dr. Efrem Collazo/[facility] Lung cancer Dx in 2012. Had right lobectomy in 11/2012. No chemo or radiation tx Type 2 diabetes mellitus without complication, without long-term current use of insulin Chronic obstructive pulmonary disease Hyperlipidemia Arthritis Gastroesophageal reflux disease Hypertension Enrolled in chronic care management Surgical History History of hysterectomy ZAIRA (still has ovaries). Performed due to fibroids and heavy bleeding. Pfannenstiel incision. History of section, low transverse 2 sections (both vertical incisions) History of lobectomy of lung (~11/2012) Lobectomy for lung cancer will get more details on treatment/surgery with medical records Family History Grandfather Colon cancer Paternal-- dx age 70's Son Colon cancer dx age 47 Mother Diabetes Hypercholesteremia Hypertension Father Diabetes Hypercholesteremia Heart disease Stroke Hypertension Sister Ovarian cancer dx age 30's Denies family history of Breast cancer Uterine cancer Thyroid disease Social History Smoking and tobacco/nicotine status: never used tobacco/nicotine Physical Exam 2 Const: COMMON NORMALS: no acute distress, average body habitus, patient oriented x3, no limitations, healthy appearing, alert and well nourished HENMT: COMMON NORMALS: normocephalic, atraumatic, hearing grossly normal bilaterally, external ears normal, Normal external nose present and moist oral mucous membranes HEAD & SCALP: normocephalic and atraumatic NOSE: Normal external nose present EXTERNAL EAR: Yes external ears normal Neck/C-Spine: COMMON NORMALS: full ROM, no lymphadenopathy, supple, no meningeal signs, no JVD and Thyroid normal THYROID: Thyroid normal Chest: COMMONS NORMALS: normal inspection of the chest; negative for normal palpation of entire chest wall (Tenderness with palpation left anterior chest wall) Resp: COMMON NORMALS: normal respiratory effort, No retractions, No use of accessory muscles and clear to auscultation bilaterally AUSCULTATION: clear to auscultation bilaterally Cardio: COMMON NORMALS: no JVD, regular rate, regular rhythm, S1 normal heart sound present, S2 normal heart sound present, No gallops present (Cardio), No clicks present (Cardio), No murmurs present (Cardio) and No rub (Cardio) R ATE: regular rate RHYTHM: regular rhythm HEART SOUNDS: S1 normal heart sound present and S2 normal heart sound present GI: COMMON NORMALS: Normal to inspection, nondistended, normoactive bowel sounds present, Soft to palpation, non-tender, No hepatosplenomegaly present and no masses PALPATION: Yes Soft to palpation and Yes No hepatosplenomegaly present Neuro: COMMON NORMALS: patient oriented x3 SENSORIUM/ORIENTATION: Yes alert MENINGEAL SIGNS: Yes no meningeal signs Course 2 Vital Signs: Vital signs: Vital Signs Temperature 98.0 F 05/10/24 13:43 Pulse Rate 88 05/10/24 20:34 Respiratory Rate 18 05/10/24 13:43 Blood Pressure 139/92 05/10/24 20:34 Pulse Oximetry 96 05/10/24 20:34 Oxygen Delivery Me thod Room Air 05/10/24 13:43 MDM - Chest Pain Differential Diagnosis Unlikely acute massive pulmonary embolism, acute respiratory failure, acute myocardial infarction, cardiac arrest or sudden cardiac Medical Records I reviewed the patient's medical records. Lab Data I reviewed the patient's lab results. 05/10/24 15:26 05/10/24 15:26 Radiology Impressions Chest X-Ray 05/10/24 13:50 IMPRESSION: 1. Left basilar opacity adjacent to left heart border. See discussion above. 2. Probably dilated air-filled esophagus. See discussion above. Follow up assessment should be considered. Chest CTA 05/10/24 15:53 IMPRESSION: 1. Minimal peribronchial thickening and clustered tree-in-bud nodular density in the left upper lobe suggesting bronchiolitis as described. No lung consolidation or large round ground-glass opacity. 2. No acute PE. 3. Hiatal hernia and esophageal findings. See discussion above. 4. Probable hepatic steatosis. Laboratory Results WBC 9.50 10^3/uL (3.29-11.43) 05/10/24 15: RBC 4.43 10^6/uL (3.85-5.65) 05/10/24 15:26 Hgb 13.20 g/dL (11.27-16.99) 05/10/24 15: Hct 39.7 % (36-47) 05/10/24 15: MCV 89.6 fl (85-98) 05/10/24 15: MCH 29.8 pg (27-33) 05/10/24 15: MCHC 33.2 g/dL (30-55) 05/10/24 15: RDW 12.0 % (12.1-15.1) L 05/10/24 15: Plt Count 247 10^3/cmm (157-399) 05/10/24 15: MPV 9.3 fL (7.4-10.4) 05/10/24 15: Neut % (Auto) 71.5 % 05/10/24 15: Lymph % (Auto) 18.0 % 05/10/24 15: [place] % (Auto) 8.1 % 05/10/24: Eos % (Auto) 1.8 % 05/10/24: Baso % (Auto) 0.4 % 05/10/24: Neut # (Auto) 6.79 10^3/uL (1.8-7.7) 05/10/24 15: Lymph # (Auto) 1.7 10^3/uL (0.8-4.8) 05/10/24: [place] # (Auto) 0.8 10^3/uL (0.2-0.9) 05/10/24 15: Eos # (Auto) 0.2 10^3/uL (0.0-0.8) 05/10/24: Baso # (Auto) 0.0 10^3/uL (0.0-0.1) 05/10/24 15:26 Nucleated RBC % (auto) 0 % 05/10/24 15:26 Nucleated RBCs # 0.0 /100WBC 05/10/24 15:26 Sodium 141 mmol/L (136-145) 05/10/24 15:26 Potassium 3.3 mmol/L (3.5-5.1) L 05/10/24 15:26 Chloride 103 mmol/L (98-107) 05/10/24 15:26 Carbon Dioxide 27 mmol/L (22-29) 05/10/24 15:26 Anion Gap 14.3 (5-19) 05/10/24 15:26 BUN 9 mg/dL (8-23) 05/10/24 15:26 Creatinine 0.4 mg/dL (0.5-0.9) L 05/10/24 15:26 GFR Calculation 158.7 mL/min (90-130) H 05/10/24 15:26 Glucose 120 mg/dL (65-115) H 05/10/24 15:26 Calculated Osmolality 292 mOsm/kg (285-295) 05/10/24 15:26 Calcium 8.9 mg/dL (8.5-10.5) 05/10/24 15:26 Troponin T Baseline 8 ng/L (0-10) 05/10/24 15:26 Troponin T 120 Minute 6.83 ng/L (0-10) 05/10/24 18:27 Delta Troponin T -1.17 ABS# (0-10) L 05/10/24 18:27 All radiology interpretation(s) finalized by discharge Discharge Plan Discharge Patient Disposition: Home Clinical Impression: Bronchiolitis, Esophagitis Condition: Stable Prescriptions: New sucralfate 1 gram tablet 1 g PO TID 28 Days Qty: 84 0RF lansoprazole [Prevacid] 30 mg capsule,delayed release(DR/EC) 30 mg PO DAILY Qty: 30 0RF azithromycin 250 mg tablet See Rx Instructions .ROUTE .COMPLEX Qty: 6 0RF Rx Instructions: For 250 mg dose pack: take 500 mg today (day 1), then 250 mg for 4 days (days 2-5) No Action diclofenac sodium 75 mg tablet,delayed release (DR/EC) See Rx Instructions .ROUTE .COMPLEX Qty: 60 3RF Dose Instruction: TAKE 1 TABLET BY MOUTH TWICE DAILY NEEDED FOR PAIN. no naproxen or nsaids Rx Instructions: TAKE 1 TABLET BY MOUTH TWICE DAILY NEEDED FOR PAIN. no naproxen or nsaids diclofenac sodium 1 % gel 2 g topical QID PRN (Reason: Pain) Qty: 100 0RF Rx Instructions: apply to single elbow,or hip Ventolin HFA 90 mcg/actuation HFA aerosol inhaler 1 inh INHALATION QID PRN (Reason: Shortness Of Breath) Qty: 18 3RF amlodipine 2.5 mg tablet See Rx Instructions .ROUTE .COMPLEX Qty: 90 2RF Dose Instruction: TAKE 1 TABLET BY MOUTH EVERY DAY Rx Instructions: TAKE 1 TABLET BY MOUTH EVERY DAY valsartan 320 mg tablet 320 mg PO BEDTIME@19 Qty: 90 3RF rosuvastatin 10 mg tablet 10 mg PO DAILY Qty: 90 3RF fluticasone propion-salmeterol [Advair HFA] 115-21 mcg/actuation HFA aerosol inhaler 2 puff inhalation BID Qty: 12 4RF Rx Instructions: administer with spacer estradiol [Estrace] 0.01 % (0.1 mg/gram) cream 0.5 g VAGINAL .twice weekly Qty: 42.5 3RF clonidine HCl 0.1 mg tablet 0.1 mg PO Q8H PRN (Reason: For blood pressure greater than 150 systolic) Qty: 30 3RF CoQ-10 100 mg Capsule 100 mg PO DAILY Discharge Orders: Discharge ED (Routine); Ordered 05/10/24 Ordered By: Oliver Black Referrals: Brittani Topete MD [Primary Care Provider] - 1-3 days Patient Instructions: Bronchiolitis (ED), Esophagitis (ED), Opioid Safety, Pain Management Activity Restrictions/Additional Instructions: Medication as directed. Check your blood pressure twice daily until you see your doctor. You may take your clonidine if blood pressure is above 150 systolic (the top number). Return for problems. See your doctor this week. Coding Level of Care Code ED Research Specialist for Trishag Malcolmd Documented by User: Oliver Black, DO 05/10/24 20:55 HPI - Chest Pain 2 General: Chief Complaint: Chest Pain Stated Complaint: SOB - COPD, Sharp pains Time Seen by Provider: 05/10/24 13:51 Related Data Home Medications Medication Instructions Recorded Confirmed coenzyme Q10 100 mg capsule 100 mg PO DAILY 04/05/23 04/21/24 (CoQ-10) Previous Rx's Medication Instructions Recorded diclofenac sodium 1 % topical gel 2 g topical QID PRN Pain #100 grams 01/13/24 diclofenac sodium 75 mg See Rx Instructions .Route 01/13/24 tablet,delayed release .COMPLEX #60 tabs albuterol sulfate 90 mcg/actuation 1 inh inhalation QID PRN Shortness 04/14/24 aerosol inhaler (Ventolin HFA) Of Breath #18 grams amlodipine 2.5 mg tablet See Rx Instructions .Route 04/14/24 .COMPLEX #90 tabs clonidine HCl 0.1 mg tablet 0.1 mg PO Q8H PRN For blood 04/14/24 pressure greater than 150 systolic #30 tabs estradiol 0.01% (0.1 mg/gram) 0.5 g vaginal .twice weekly #42.5 04/14/24 vaginal cream (Estrace) grams fluticasone propionate 115 2 puff inhalation BID #12 grams 04/14/24 mcg-salmeterol 21 mcg/actuation HFA inhaler (Advair HFA) rosuvastatin 10 mg tablet 10 mg PO DAILY #90 tabs 04/14/24 valsartan 320 mg tablet 320 mg PO BEDTIME@19 #90 tabs 04/14/24 azithromycin 250 mg tablet See Rx Instructions PO .COMPLEX #6 05/10/24 tabs lansoprazole 30 mg capsule,delayed 30 mg PO DAILY #30 caps 05/10/24 release (Prevacid) sucralfate 1 gram tablet 1 g PO TID 4 weeks #84 tabs 05/10/24 Allergies Allergy/AdvReac Type Severity Reaction Status Date / Time codeine Allergy rash Verified 05/10/24 13:47 Penicillins Allergy rash and Verified 05/10/24 13:47 looses taste Sulfa (Sulfonamide Allergy rash Verified 05/10/24 13:47 Antibiotics) PFSH ED 2 PFSH: Medical History No pertinent past medical history neghx: thyroid,dvt/pe PCP: Dr. Efrem Collazo/Jac[facility] Lung cancer Dx in 2012. Had right lobectomy in 11/2012. No chemo or radiation tx Type 2 diabetes mellitus without complication, without long-term current use of insulin Chronic obstructive pulmonary disease Hyperlipidemia Arthritis Gastroesophageal reflux disease Hypertension Enrolled in chronic care management Surgical History History of hysterectomy ZAIRA (still has ovaries). Performed due to fibroids and heavy bleeding. Pfannenstiel incision. History of section, low transverse 2 sections (both vertical incisions) History of lobectomy of lung (~11/2012) Lobectomy for lung cancer will get more details on treatment/surgery with medical records Family History Grandfather Colon cancer Paternal-- dx age 70's Son Colon cancer dx age 47 Mother Diabetes Hypercholesteremia Hypertension Father Diabetes Hypercholesteremia Heart disease Stroke Hypertension Sister Ovarian cancer dx age 30's Denies family history of Breast cancer Uterine cancer Thyroid disease Social History Smoking and tobacco/nicotine status: never used tobacco/nicotine Course 2 Vital Signs: Vital signs: Vital Signs Temperature 98.0 F 05/10/24 13:43 Pulse Rate 88 05/10/24 20:34 Respiratory Rate 18 05/10/24 13:43 Blood Pressure 139/92 05/10/24 20:34 Pulse Oximetry 96 05/10/24 20:34 Oxygen Delivery Me thod Room Air 05/10/24 13:43 MDM - Chest Pain Medical Decision Making 68-year-old female checked out to me at shift change. She presents with chest discomfort, shortness of breath and anxiety. Pain is worse when she takes a deep breath. It seems to be in her upper back between her shoulder blades. Her vitals been stable. Saturations are normal. She is nontachycardic. CBC is normal. Potassium is mildly low at 3.3. Chest x-ray showed a left basilar opacity and a dilated air-filled esophagus. CTA was performed, showing peribronchial thickening clustered tree-in-bud nodular densities in the left upper lobe suggesting bronchiolitis. There is no PE. She has esophageal findings of esophagitis with hiatal hernia. She is treated with GI cocktail, anxiety medication, and feeling improved. She was allowed to take her home medication here. She will go home on lansoprazole, sucralfate for the esophagitis. Should be treated with antibiotics for the bronchiolitis. Close outpatient follow-up. Return for any new or worsening symptoms. Lab Data 05/10/24 15:26 05/10/24 15:26 Radiology Impressions Chest X-Ray 05/10/24 13:50 IMPRESSION: 1. Left basilar opacity adjacent to left heart border. See discussion above. 2. Probably dilated air-filled esophagus. See discussion above. Follow up assessment should be considered. Chest CTA 05/10/24 15:53 IMPRESSION: 1. Minimal peribronchial thickening and clustered tree-in-bud nodular density in the left upper lobe suggesting bronchiolitis as described. No lung consolidation or large round ground-glass opacity. 2. No acute PE. 3. Hiatal hernia and esophageal findings. See discussion above. 4. Probable hepatic steatosis. Laboratory Results WBC 9.50 10^3/uL (3.29-11.43) 05/10/24 15: RBC 4.43 10^6/uL (3.85-5.65) 05/10/24 15:26 Hgb 13.20 g/dL (11.27-16.99) 05/10/24 15: Hct 39.7 % (36-47) 05/10/24 15: MCV 89.6 fl (85-98) 05/10/24 15: MCH 29.8 pg (27-33) 05/10/24 15: MCHC 33.2 g/dL (30-55) 05/10/24 15: RDW 12.0 % (12.1-15.1) L 05/10/24: Plt Count 247 10^3/cmm (157-399) 05/10/24 15: MPV 9.3 fL (7.4-10.4) 05/10/24 15: Neut % (Auto) 71.5 % 05/10/24 15: Lymph % (Auto) 18.0 % 05/10/24: [place] % (Auto) 8.1 % 05/10/24 15:26 Eos % (Auto) 1.8 % 05/10/24 15:26 Baso % (Auto) 0.4 % 05/10/24 15:26 Neut # (Auto) 6.79 10^3/uL (1.8-7.7) 05/10/24 15:26 Lymph # (Auto) 1.7 10^3/uL (0.8-4.8) 05/10/24 15:26 [place] # (Auto) 0.8 10^3/uL (0.2-0.9) 05/10/24:26 Eos # (Auto) 0.2 10^3/uL (0.0-0.8) 05/10/24: Baso # (Auto) 0.0 10^3/uL (0.0-0.1) 05/10/24: Nucleated RBC % (auto) 0 % 05/10/24: Nucleated RBCs # 0.0 /100WBC 05/10/24 15:26 Sodium 141 mmol/L (136-145) 05/10/24 15:26 Potassium 3.3 mmol/L (3.5-5.1) L 05/10/24 15:26 Chloride 103 mmol/L (98-107) 05/10/24 15:26 Carbon Dioxide 27 mmol/L (22-29) 05/10/24 15:26 Anion Gap 14.3 (5-19) 05/10/24 15:26 BUN 9 mg/dL (8-23) 05/10/24 15:26 Creatinine 0.4 mg/dL (0.5-0.9) L 05/10/24 15:26 GFR Calculation 158.7 mL/min (90-130) H 05/10/24 15:26 Glucose 120 mg/dL (65-115) H 05/10/24 15:26 Calculated Osmolality 292 mOsm/kg (285-295) 05/10/24 15:26 Calcium 8.9 mg/dL (8.5-10.5) 05/10/24 15:26 Troponin T Baseline 8 ng/L (0-10) 05/10/24 15:26 Troponin T 120 Minute 6.83 ng/L (0-10) 05/10/24 18:27 Delta Troponin T -1.17 ABS# (0-10) L 05/10/24 18:27 Discharge Plan Discharge Patient Disposition: Home Clinical Impression: Bronchiolitis, Esophagitis Condition: Stable Prescriptions: New sucralfate 1 gram tablet 1 g PO TID 28 Days Qty: 84 0RF lansoprazole [Prevacid] 30 mg capsule,delayed release(DR/EC) 30 mg PO DAILY Qty: 30 0RF azithromycin 250 mg tablet See Rx Instructions .ROUTE .COMPLEX Qty: 6 0RF Rx Instructions: For 250 mg dose pack: take 500 mg today (day 1), then 250 mg for 4 days (days 2-5) No Action diclofenac sodium 75 mg tablet,delayed release (DR/EC) See Rx Instructions .ROUTE .COMPLEX Qty: 60 3RF Dose Instruction: TAKE 1 TABLET BY MOUTH TWICE DAILY NEEDED FOR PAIN. no naproxen or nsaids Rx Instructions: TAKE 1 TABLET BY MOUTH TWICE DAILY NEEDED FOR PAIN. no naproxen or nsaids diclofenac sodium 1 % gel 2 g topical QID PRN (Reason: Pain) Qty: 100 0RF Rx Instructions: apply to single elbow,or hip Ventolin HFA 90 mcg/actuation HFA aerosol inhaler 1 inh INHALATION QID PRN (Reason: Shortness Of Breath) Qty: 18 3RF amlodipine 2.5 mg tablet See Rx Instructions .ROUTE .COMPLEX Qty: 90 2RF Dose Instruction: TAKE 1 TABLET BY MOUTH EVERY DAY Rx Instructions: TAKE 1 TABLET BY MOUTH EVERY DAY valsartan 320 mg tablet 320 mg PO BEDTIME@19 Qty: 90 3RF rosuvastatin 10 mg tablet 10 mg PO DAILY Qty: 90 3RF fluticasone propion-salmeterol [Advair HFA] 115-21 mcg/actuation HFA aerosol inhaler 2 puff inhalation BID Qty: 12 4RF Rx Instructions: administer with spacer estradiol [Estrace] 0.01 % (0.1 mg/gram) cream 0.5 g VAGINAL .twice weekly Qty: 42.5 3RF clonidine HCl 0.1 mg tablet 0.1 mg PO Q8H PRN (Reason: For blood pressure greater than 150 systolic) Qty: 30 3RF CoQ-10 100 mg Capsule 100 mg PO DAILY Discharge Orders: Discharge ED (Routine); Ordered 05/10/24 Ordered By: Oliver Black Referrals: Brittani Topete MD [Primary Care Provider] - 1-3 days Patient Instructions: Bronchiolitis (ED), Esophagitis (ED), Opioid Safety, Pain Management Activity Restrictions/Additional Instructions: Medication as directed. Check your blood pressure twice daily until you see your doctor. You may take your clonidine if blood pressure is above 150 systolic (the top number). Return for problems. See your doctor this week. Coding Level of Care Code ED Research Specialist for Kandace Rae
[2024-05-10 15:33] LABS: Basophils % 0.4 %; Eosinophils # 0.2 10^3/uL (0.0-0.8); Eosinophils % 1.8 %; Hematocrit 39.7 % (36-47); Lymphocytes # 1.7 10^3/uL (0.8-4.8); Mean Corpuscular HGB Conc 33.2 g/dL (30-55); Mean Corpuscular Hemoglobin 29.8 pg (27-33); Mean Corpuscular Volume 89.6 fl (85-98); Mean Platelet Volume 9.3 fL (7.4-10.4); Monocytes # 0.8 10^3/uL (0.2-0.9); Monocytes % 8.1 %; Neutrophils # 6.79 10^3/uL (1.8-7.7); Neutrophils % 71.5 %; Nucleated Red Blood Cells % 0 %; Platelet Count 247 10^3/cmm (157-399); Red Blood Count 4.43 10^6/uL (3.85-5.65)
[2024-05-10] MEDS: ketorolac 60 mg/2 mL INJ IM (15:38)
[2024-05-10 15:50] LABS: Anion Gap 14.3 (5-19); Blood Urea Nitrogen 9 mg/dL (8-23); Calcium 8.9 mg/dL (8.5-10.5); Carbon Dioxide 27 mmol/L (22-29); Chloride 103 mmol/L (98-107); Creatinine Clr Calc Pharmacy 69.4952; Glomerular Filtration Rate 158.7 mL/min (90-130); Glucose 120 mg/dL (65-115); Osmolality Calculated 292 mOsm/kg (285-295); Potassium 3.3 mmol/L (3.5-5.1); Sodium 141 mmol/L (136-145)
--- NOTE | 2024-05-10 15:50 | ECG_ITS ---
[facility] Test Date: 2024-05-10 Pat Name: Merlyn Angeles Department: Room: Gender: Female Flume Tender: : 1955 Requested By: Luan Culver Order Number: [id number] Arturo MD: Kristian Duke M.D. Measurements Intervals [place] Rate: 86 P: 66 IA: 172 QRS: 14 QRSD: 96 T: 36 QT: 361 QTc: 433 Interpretive Statements SINUS RHYTHM INCOMPLETE RIGHT BUNDLE BRANCH BLOCK [90+ ms QRS DURATION, TERMINAL R IN V1/V2, 40+ ms S IN I/aVL/V4/V5/V6] Compared to ECG 05/10/2024 14:02:17 Incomplete right bundle-branch block now present Electronically Signed On 05-10-2024 22:59:02 CDT by Kristian Duke M.D. [email or web address]
[2024-05-10 15:53] LABS: Troponin(5th) Baseline 8 ng/L (0-10)
--- NOTE | 2024-05-10 15:53 | CTR_ITS ---
PROCEDURE INFORMATION: Exam: CTA Chest With Contrast Exam date and time: 05/10/2024 4:02 PM Age: 68 years old Clinical indication: Pain; Shortness of breath; Chest pressure; Patient HX: Lung CA; Additional info: Chest pain, dyspnea, abnormal cxr TECHNIQUE: Imaging protocol: Computed tomographic angiography of the chest with contrast. Exam focused on the arteries. 3D rendering (Not supervised by radiologist): MIP and/or 3D reconstructed images were created by the technologist. Radiation optimization: All CT scans at this facility use at least one of these dose optimization techniques: automated exposure control; mA and/or kV adjustment per patient size (includes targeted exams where dose is matched to clinical indication); or iterative reconstruction. Contrast material: OMNI 350; Contrast volume: 64 ml; Contrast route: INTRAVENOUS (IV); COMPARISON: CR (CHEST, ) 05/10/2024 1:57 PM RADIATION DOSE METRICS: Total DLP (mGy-cm): 415.79 FINDINGS: Pulmonary arteries: Normal. No pulmonary emboli. Aorta: No aortic aneurysm. No aortic dissection. Lungs: No consolidation or large round ground-glass opacity. There is minimal peribronchial thickening and subtle tiny clustered tiny tree-in-bud nodular densities in the left upper lobe suggesting infectious/inflammatory bronchiolitis. Pleural spaces: Unremarkable. No pneumothorax. No pleural effusion. Heart: No cardiomegaly. No pericardial effusion. Esophagus: Slightly distended thoracic esophagus with probable mild wall thickening which may be related to reflux disease and esophagitis. Lymph nodes: Nonenlarged mediastinal/hilar lymph nodes consistent with granulomatous disease. No enlarged adenopathy otherwise. Liver: Low hepatic parenchymal density suggesting steatosis. Stomach: There is a prominent diaphragmatic/hiatal hernia containing about proximal 1/3 of the stomach with no significant luminal distension. Bones/joints: No acute fracture. Soft tissues: Unremarkable. CT/CT angio chest PE protcl 19563 IMPRESSION: 1. Minimal peribronchial thickening and clustered tree-in-bud nodular density in the left upper lobe suggesting bronchiolitis as described. No lung consolidation or large round ground-glass opacity. 2. No acute PE. 3. Hiatal hernia and esophageal findings. See discussion above. 4. Probable hepatic steatosis.
[2024-05-10] MEDS: iohexol 350 mg/mL 500 mL Btl (per mL) IV (16:06)
[2024-05-10 19:22] LABS: Troponin 5 2HR 6.83 ng/L (0-10)
[2024-05-10 19:23] LABS: Troponin 5 2HR Delta -1.17 ABS# (0-10)
--- NOTE | 2024-05-10 19:26 | ECG_ITS ---
[facility] Test Date: 2024-05-10 Pat Name: Merlyn Angeles Department: Room: Gender: Female Foster Winder: : 1955 Requested By: Luan Culver Order Number: [id number] Arturo MD: Kristian Duke M.D. Measurements Intervals [place] Rate: 85 P: 48 CO: 175 QRS: 24 QRSD: 94 T: 39 QT: 357 QTc: 426 Interpretive Statements SINUS RHYTHM Compared to ECG 05/10/2024 16:16:46 Incomplete right bundle-branch block no longer present Electronically Signed On 05-10-2024 23:07:23 CDT by Kristian Duke M.D. [email or web address]
[2024-05-10] MEDS: lidocaine 2% viscous 15 ML, aluminum-mag hydrox-simethicon 30 ML, sucralfate oral liq 1 GM PO (20:01)
[2024-05-10] MEDS: LORazepam 2 mg/mL INJ 1 mL 0.5 MG IVP (20:05)
[2024-05-10] MEDS: dexamethasone 4 mg/mL INJ 8 MG IVP (20:08)
[2024-05-10] MEDS: azithromycin 250 mg Tablet 500 MG PO (20:14)
== END 2024-05-10 20:39 | disposition home or self-care (01) ==
PROVIDERS: Emergency Provider Emergency Medicine; PCP Family Medicine
DX: J21.9 Acute bronchiolitis, unspecified (principal); K20.90 Esophagitis, unspecified without bleeding; Z85.118 Personal history of other malignant neoplasm of bronchus and lung; E11.9 Type 2 diabetes mellitus without complications; J44.9 Chronic obstructive pulmonary disease, unspecified; E78.5 Hyperlipidemia, unspecified; I10 Essential (primary) hypertension
CPT/HCPCS: 36415; 71045; 71275; 80048; 84484; 85025; 93005; 96372; 96374; 96375; 99285; J1100; J1885; J2060; Q0144

== ENCOUNTER → 2024-07-14 09:27 | Outpatient (BNVA) | payer MEDICARE, SELFPAY | PROVIDERS: PCP Family Medicine; Visit Provider Nurse Practitioner Family | DX: E11.9 Type 2 diabetes mellitus without complications (principal); E78.2 Mixed hyperlipidemia | CPT/HCPCS: 80053; 80061; 82043; 83036; 84443; 85025 ==

== ENCOUNTER 2024-12-23 15:18 | Outpatient (CLI) | payer MEDICARE, SELFPAY ==
--- NOTE | 2024-12-23 15:00 | USR_ITS ---
PROCEDURE INFORMATION: Exam: US Duplex Left Lower Extremity Veins, Limited Exam date and time: 12/23/2024 3:25 PM Age: 69 years old Clinical indication: Pain; Leg, lower; Left; Additional info: M79.605 - pain in left leg TECHNIQUE: Imaging protocol: Real-time duplex ultrasound of the left extremity with 2-D tsang scale, color Doppler flow and spectral waveform analysis including responses to compression and other maneuvers (when performed) with image documentation. Limited exam focused on the left lower extremity veins. COMPARISON: No relevant prior studies available. FINDINGS: Left deep veins: Unremarkable. The common femoral, femoral, proximal profunda femoral and popliteal veins are patent without thrombus. Normal Doppler waveforms. Normal compressibility and/or augmentation response. Superficial veins: Greater saphenous vein at the saphenofemoral junction is patent without thrombus. Soft tissues: Unremarkable. US/[place] [id number] IMPRESSION: No evidence of deep vein thrombosis.
[2024-12-23 16:07] LABS: Basophils % 0.5 %; Eosinophils # 0.3 10^3/uL (0.0-0.8); Eosinophils % 3.7 %; Hematocrit 41.5 % (36-47); Lymphocytes % 22.9 %; Mean Corpuscular HGB Conc 31.8 g/dL (30-55); Mean Corpuscular Hemoglobin 27.2 pg (27-33); Mean Corpuscular Volume 85.4 fl (85-98); Mean Platelet Volume 9.5 fL (7.4-10.4); Monocytes # 0.6 10^3/uL (0.2-0.9); Monocytes % 6.2 %; Neutrophils # 5.88 10^3/uL (1.8-7.7); Neutrophils % 66.5 %; Nucleated Red Blood Cells % 0 %; Platelet Count 252 10^3/cmm (157-399); Red Blood Count 4.86 10^6/uL (3.85-5.65); White Blood Count 8.85 10^3/uL (3.29-11.43)
[2024-12-23 16:21] LABS: Estmated Average Glucose 151; Hemoglobin A1C 6.9 % (4.0-6.0)
[2024-12-23 16:22] LABS: Bilirubin Urine Negative (Negative); Blood Urine Negative (Negative); Glucose Urine UA Negative (Normal); Ketones Urine Negative (Negative); Leukocyte Esterase Urine 3+ (Negative); Nitrate Urine Negative (Negative); Protein Urine Negative (Negative); Specific Gravity, Urine 1.009 (1.005-1.030); Urine Appearance Clear (CLEAR); Urine Color Yellow (Yellow); pH Urine 6.5 (5-7)
[2024-12-23 16:27] LABS: Add Urine Microscopic? YES; Bacteria Urine 1+ /hpf; Hyaline Casts Urine 0-4 /lpf; RBC Urine 0-2 /hpf (0-2); Squamous Epithelial Cell Urine 0-5 /hpf (0-5); WBC Urine 21-50 /hpf (0-5)
[2024-12-23 16:30] LABS: Add Urine Culture? Yes
[2024-12-23 16:59] LABS: Alanine Aminotransferase 24 U/L (0-33); Albumin Level 4.4 g/dL (3.5-5.2); Alkaline Phosphatase 191 U/L (35-105); Anion Gap 18.3 (5-19); Aspartate Amino Transferase 18 U/L (0-32); Blood Urea Nitrogen 10 mg/dL (8-23); Calcium 9.1 mg/dL (8.5-10.5); Carbon Dioxide 22 mmol/L (22-29); Chloride 103 mmol/L (98-107); Chol HDL Ratio 2.41 mg/dL (0.0-4.40); Cholesterol 118 mg/dL (0-200); Globulin 2.7 g/dL (1.3-4.6); Glomerular Filtration Rate 122.3 mL/min (90-130); Glucose 137 mg/dL (65-115); HDL Cholesterol 49 mg/dL (60-100); LDL Cholesterol Calculated 29 mg/dL (50-129); LDL HDL Ratio 0.59 RATIO (0.00-3.22); Osmolality Calculated 291 mOsm/kg (285-295); Potassium 3.3 mmol/L (3.5-5.1); Sodium 140 mmol/L (136-145); Total Bilirubin 0.3 mg/dL (0.15-1.2); Total Protein 7.1 g/dL (6.6-8.7); Triglycerides 201 mg/dL (0-150)
== END 2024-12-23 15:19 | disposition home or self-care (01) ==
PROVIDERS: PCP Nurse Practitioner Family; Visit Provider Nurse Practitioner Family
DX: M79.605 Pain in left leg (principal); E11.9 Type 2 diabetes mellitus without complications; E78.2 Mixed hyperlipidemia
CPT/HCPCS: 36415; 80053; 80061; 81001; 83036; 84443; 85025; 87086; 93971

== ENCOUNTER 2024-12-25 22:27 | Emergency (ER) | payer MEDICARE, SELFPAY ==
[2024-12-25 22:28] VITALS: BP 191/102; PULSE 88; RESP 16; TEMP 36.4; O2SAT 99; BMI 28.3
[2024-12-25 22:38] LABS: Glucose Point of Care 228 mg/dL (70-110)
[2024-12-25 22:58] LABS: Glucose Point of Care 191 mg/dL (70-110)
--- NOTE | 2024-12-25 23:05 | XRR_ITS ---
PROCEDURE INFORMATION: Exam: XR Left Knee Exam date and time: 12/25/2024 11:15 PM Age: 69 years old Clinical indication: C/O left knee pain. No injury. TECHNIQUE: Imaging protocol: Radiologic exam of the left knee. Views: 1 or 2 views. COMPARISON: [place] [id number] 12/23/2024 3:25 PM FINDINGS: Bones/joints: Normal. Soft tissues: Normal. XR/XR knee LT 1-2V [id number] IMPRESSION: No acute findings.
--- NOTE | 2024-12-25 23:20 | W.ED.EXTPRO ---
HPI - Extremity Problem General: Chief complaint: Extremity Injury, Lower Stated complaint: L leg pain Time Seen by Provider: 12/25/24 22:46 History of Present Illness: Patient is a 69-year-old female with history of HTN, COPD, HLD, that presented to the emergency room due to left leg pain, and edema. Patient has complained of increased swelling and pain to her left lower extremity in the last 4 days. She was able to go to her primary care physician's office on 12/23, and a venous ultrasound of lower extremity was performed. This was negative for DVT. Patient does not have history of coagulopathy disorder. Patient complains of tibial plateau pain, medial and lateral knee. She denies any injury. Self-treatment: Patient states that she has attempted compression however the pain was worse. She denies any redness. She has not had fever, chills. Associated symptoms: Deny chest pain or fever(s) Related Data Home Medications ?Medication ?Instructions ?Recorded ?Confirmed coenzyme Q10 100 mg capsule 100 mg PO DAILY 04/05/23 12/23/24 (CoQ-10) Previous Rx's ?Medication ?Instructions ?Recorded diclofenac sodium 1 % topical gel 2 g topical QID PRN Pain #100 grams 01/13/24 albuterol sulfate 90 mcg/actuation 1 inh inhalation QID PRN Shortness 04/14/24 aerosol inhaler (Ventolin HFA) Of Breath #18 grams clonidine HCl 0.1 mg tablet 0.1 mg PO Q8H PRN For blood 04/14/24 pressure greater than 150 systolic #30 tabs estradiol 0.01% (0.1 mg/gram) 0.5 g vaginal .twice weekly #42.5 04/14/24 vaginal cream (Estrace) grams amlodipine 2.5 mg tablet See Rx Instructions .Route 07/14/24 .COMPLEX #90 tabs lansoprazole 30 mg capsule,delayed 30 mg PO DAILY #90 caps 07/14/24 release (Prevacid) rosuvastatin 10 mg tablet 10 mg PO DAILY #90 tabs 07/14/24 valsartan 320 mg tablet 320 mg PO BEDTIME@19 #90 tabs 07/14/24 metronidazole 500 mg tablet 500 mg PO BID #14 tabs 10/20/24 fluticasone propionate 115 See Rx Instructions .Route 12/10/24 mcg-salmeterol 21 mcg/actuation .COMPLEX #12 grams HFA inhaler (Advair HFA) diclofenac sodium 75 mg See Rx Instructions .Route 12/21/24 tablet,delayed release .COMPLEX #60 tabs ciprofloxacin HCl 500 mg tablet 500 mg PO BID #14 tabs 12/24/24 (Cipro) potassium chloride 10 mEq 10 meq PO DAILY #30 caps 12/24/24 capsule,extended release prednisone 20 mg tablet 20 mg PO BID #10 tabs 12/24/24 Allergies Allergy/AdvReac Type Severity Reaction Status Date / Time codeine Allergy rash Verified 12/23/24 13:37 Penicillins Allergy rash and Verified 12/23/24 13:37 looses taste Sulfa (Sulfonamide Allergy rash Verified 12/23/24 13:37 Antibiotics) Review of Systems Const: Denies: fever(s) or chills Card: Reports: edema (LLE); Denies: chest pain or palpitations Resp: Denies: dyspnea or productive cough GI: Denies: abdominal pain, nausea or vomiting : Denies: flank pain or difficulty voiding Musc: Denies: neck pain or back pain Neuro: Denies: headache(s) or numbness in extremities Psych: Denies: anxiety or depression PFSH ED PFSH: Medical History No pertinent past medical history neghx: thyroid,dvt/pe [facility]. Had right lobectomy in 11/2012. No chemo or radiation tx Type 2 diabetes mellitus without complication, without long-term current use of insulin Chronic obstructive pulmonary disease Hyperlipidemia Arthritis Gastroesophageal reflux disease Hypertension Enrolled in chronic care management Surgical History History of hysterectomy ZAIRA (still has ovaries). Performed due to fibroids and heavy bleeding. Pfannenstiel incision. History of section, low transverse 2 sections (both vertical incisions) History of lobectomy of lung (~11/2012) Lobectomy for lung cancer will get more details on treatment/surgery with medical records Family History Grandfather Colon cancer Paternal-- dx age 70's Son Colon cancer dx age 47 Mother Diabetes Hypercholesteremia Hypertension Father Diabetes Hypercholesteremia Heart disease Stroke Hypertension Sister Ovarian cancer dx age 30's Denies family history of Breast cancer Uterine cancer Thyroid disease Social History Smoking and tobacco/nicotine status: former use of tobacco/nicotine Physical Exam Const: COMMON NORMALS: no acute distress and patient oriented x3 GENERAL APPEARANCE: cooperative Neck/C-Spine: COMMON NORMALS: full ROM and no lymphadenopathy Lymph: LYMPHATIC: no lymphadenopathy noted Chest: COMMONS NORMALS: normal inspection of the chest CHEST: Yes Symmetrical chest wall rise Resp: COMMON NORMALS: normal respiratory effort and clear to auscultation bilaterally AUSCULTATION: clear to auscultation bilaterally Cardio: COMMON NORMALS: S1 normal heart sound present, S2 normal heart sound present and Peripheral pulses 2+ throughout HEART SOUNDS: S1 normal heart sound present and S2 normal heart sound present PERIPHERAL PULSES: Peripheral pulses 2+ throughout and dorsalis pedis present GI: COMMON NORMALS: Normal to inspection, nondistended, normoactive bowel sounds present, Soft to palpation and non-tender PALPATION: Yes Soft to palpation : COMMON NORMALS: Yes no CVA tenderness BLADDER/KIDNEY EXAM: Yes no CVA tenderness Back/Pelvis: COMMON NORMALS: no CVA tenderness and thoracic and lumbar spine normal to inspection Extremity: COMMON NORMALS: normal to inspection, full ROM and capillary refill normal; negative for no pedal edema (+2 mid proximal leg descending) RIGHT LOWER EXTREMITY: Yes upper leg (mild edema), Yes knee joint Right knee: Yes palpation (pain over tibia plateau) and Yes ROM and Yes lower leg Right lower leg: Yes palpation and Yes neurovascular exam Neuro: COMMON NORMALS: patient oriented x3 and CN's II-XII intact bilaterally Psych: COMMON NORMALS: mental status grossly normal and Normal thought process present THOUGHT PROCESS: Normal thought process present Skin: COMMON NORMALS: no rashes or lesions noted GENERAL SKIN EXAM: no rashes or lesions noted Course Vital Signs: Vital signs: Vital Signs Temperature 97.6 F 12/25/24 22:28 Pulse Rate 88 12/25/24 22:28 Respiratory Rate 16 12/25/24 22:28 Blood Pressure 191/102 12/25/24 22:28 Pulse Oximetry 99 12/25/24 22:28 Oxygen Delivery Me thod Room Air 12/25/24 22:28 MDM - Extremity (Nontraumatic) Medical Decision Making Patient is a 69-year-old female with edema to left lower extremity x 4 days, that has seen her primary care physician, and had a venous ultrasound. This swelling is causing her pain, as well as her medial portion/tibial plateau on physical examination of her left knee. I suspect the pain is secondary to edema, however since ultrasound has been done, and DVT has been ruled out, will obtain x-ray of left knee. Any additional concerns will be deferred to primary care. Patient does not complain of abdominal bloating, abdominal distention, or discomfort. Patient is on prednisone per PCP, and blood glucose was 197 here, and 225 at home. I have given the patient reassurance that this is associated with prednisone, and told her to utilize a low carbohydrate diet, as well as follow-up with her primary care. Patient was also concerned about the elevation of her blood pressure, however we do not typically correct blood pressures in the ED unless they are >220 systolic, given the concern of syncope, near syncope. Patient does not have any stroke related symptoms applicable to today's examination/any of patient's concerns. Lab Data Radiology Impressions Knee X-Ray 12/25/24 23:05 IMPRESSION: No acute findings. Laboratory Results POC Glucose 191 mg/dL (70-110) H 12/25/24 22:51 All radiology interpretation(s) finalized by discharge ED provider radiology interpretation(s): No acute findings Discharge Plan Discharge Patient Disposition: Home Clinical Impression: Leg edema, left, Acute pain of left knee Condition: Stable Prescriptions: No Action diclofenac sodium 1 % gel 2 g topical QID PRN (Reason: Pain) Qty: 100 0RF Rx Instructions: apply to single elbow,or hip Ventolin HFA 90 mcg/actuation HFA aerosol inhaler 1 inh INHALATION QID PRN (Reason: Shortness Of Breath) Qty: 18 3RF estradiol [Estrace] 0.01 % (0.1 mg/gram) cream 0.5 g VAGINAL .twice weekly Qty: 42.5 3RF clonidine HCl 0.1 mg tablet 0.1 mg PO Q8H PRN (Reason: For blood pressure greater than 150 systolic) Qty: 30 3RF amlodipine 2.5 mg tablet See Rx Instructions .ROUTE .COMPLEX Qty: 90 1RF Dose Instruction: TAKE 1 TABLET BY MOUTH EVERY DAY Rx Instructions: TAKE 1 TABLET BY MOUTH EVERY DAY lansoprazole [Prevacid] 30 mg capsule,delayed release(DR/EC) 30 mg PO DAILY Qty: 90 1RF rosuvastatin 10 mg tablet 10 mg PO DAILY Qty: 90 1RF valsartan 320 mg tablet 320 mg PO BEDTIME@19 Qty: 90 1RF metronidazole 500 mg tablet 500 mg PO BID Qty: 14 0RF fluticasone propion-salmeterol [Advair HFA] 115-21 mcg/actuation HFA aerosol inhaler See Rx Instructions .ROUTE .COMPLEX Qty: 12 1RF Dose Instruction: INHALE TWO PUFFS BY MOUTH TWICE DAILY Rx Instructions: INHALE TWO PUFFS BY MOUTH TWICE DAILY diclofenac sodium 75 mg tablet,delayed release (DR/EC) See Rx Instructions .ROUTE .COMPLEX Qty: 60 2RF Dose Instruction: TAKE 1 TABLET BY MOUTH TWICE DAILY NEEDED FOR PAIN Rx Instructions: TAKE 1 TABLET BY MOUTH TWICE DAILY NEEDED FOR PAIN potassium chloride 10 mEq capsule, extended release 10 meq PO DAILY Qty: 30 0RF ciprofloxacin HCl [Cipro] 500 mg tablet 500 mg PO BID Qty: 14 0RF prednisone 20 mg tablet 20 mg PO BID Qty: 10 0RF CoQ-10 100 mg Capsule 100 mg PO DAILY Discharge Orders: Discharge ED (Routine); Ordered 12/26/24 Ordered By: Hillary Saenz Referrals: Beverly Warner FNP [Primary Care Provider, Family Practice] Discharge Diet: Low Salt Discharge Activity: Resume usual activity Patient Instructions: Leg Edema (ED), DASH Eating Plan (ED) Activity Restrictions/Additional Instructions: I would recommend that you compress your lower extremity. It would help with the pain if you had a compression sock at least to your knee. Tylenol for pain. Avoid a high salt density diet. A DASH diet has been added for you to follow. Your blood glucose was 191 here. I know that it was elevated at home, and this is associated with the prednisone. Please discuss with your primary care physician on Saturday. Call them for an appointment follow-up. Your x-ray was negative for acute fracture. [facility]please follow up Print Language: Maltese Coding Level of Care Code ED News Technical Director for Kandace Rae
--- NOTE | 2024-12-26 00:33 | W.ED.EXTPRO ---
HPI - Extremity Problem General: Chief complaint: Extremity Injury, Lower Stated complaint: L leg pain Time Seen by Provider: 12/25/24 22:46 History of Present Illness: Patient is 69-year-old female, presented to ED after left lower extremity edema x 4 days. Patient has seen her primary care physician that has performed a lower extremity ultrasound that is negative for DVT. Denies fever. Admits to medial distal knee pain. No injury. Blood pressure has been on higher side despite patient being compliant to medications. Associated symptoms: Deny chest pain, fever(s) or rash Related Data Home Medications ?Medication ?Instructions ?Recorded ?Confirmed coenzyme Q10 100 mg capsule 100 mg PO DAILY 04/05/23 12/23/24 (CoQ-10) Previous Rx's ?Medication ?Instructions ?Recorded diclofenac sodium 1 % topical gel 2 g topical QID PRN Pain #100 grams 01/13/24 albuterol sulfate 90 mcg/actuation 1 inh inhalation QID PRN Shortness 04/14/24 aerosol inhaler (Ventolin HFA) Of Breath #18 grams clonidine HCl 0.1 mg tablet 0.1 mg PO Q8H PRN For blood 04/14/24 pressure greater than 150 systolic #30 tabs estradiol 0.01% (0.1 mg/gram) 0.5 g vaginal .twice weekly #42.5 04/14/24 vaginal cream (Estrace) grams amlodipine 2.5 mg tablet See Rx Instructions .Route 07/14/24 .COMPLEX #90 tabs lansoprazole 30 mg capsule,delayed 30 mg PO DAILY #90 caps 07/14/24 release (Prevacid) rosuvastatin 10 mg tablet 10 mg PO DAILY #90 tabs 07/14/24 valsartan 320 mg tablet 320 mg PO BEDTIME@19 #90 tabs 07/14/24 metronidazole 500 mg tablet 500 mg PO BID #14 tabs 10/20/24 fluticasone propionate 115 See Rx Instructions .Route 12/10/24 mcg-salmeterol 21 mcg/actuation .COMPLEX #12 grams HFA inhaler (Advair HFA) diclofenac sodium 75 mg See Rx Instructions .Route 12/21/24 tablet,delayed release .COMPLEX #60 tabs ciprofloxacin HCl 500 mg tablet 500 mg PO BID #14 tabs 12/24/24 (Cipro) potassium chloride 10 mEq 10 meq PO DAILY #30 caps 12/24/24 capsule,extended release prednisone 20 mg tablet 20 mg PO BID #10 tabs 12/24/24 Allergies Allergy/AdvReac Type Severity Reaction Status Date / Time codeine Allergy rash Verified 12/23/24 13:37 Penicillins Allergy rash and Verified 12/23/24 13:37 looses taste Sulfa (Sulfonamide Allergy rash Verified 12/23/24 13:37 Antibiotics) Review of Systems General: Reports: 10 or more systems reviewed and unremarkable except in HPI and below Const: Denies: fever(s) or chills ENMT: Denies: throat pain or hoarseness Card: Denies: chest pain or palpitations Resp: Denies: dyspnea or productive cough GI: Denies: abdominal pain, nausea or vomiting : Denies: flank pain or difficulty voiding Musc: Reports: extremity pain, extremity swelling and joint pain; Denies: neck pain or back pain Skin/Breast: Denies: rash or pruritus Neuro: Denies: headache(s) or numbness in extremities Psych: Denies: anxiety or depression Mono/Lymph: Denies: easy bruising or easy bleeding PFSH ED PFSH: Medical History No pertinent past medical history neghx: thyroid,dvt/pe PCP: Beverly [facility] Lung cancer Dx in 2012. Had right lobectomy in 11/2012. No chemo or radiation tx Type 2 diabetes mellitus without complication, without long-term current use of insulin Chronic obstructive pulmonary disease Hyperlipidemia Arthritis Gastroesophageal reflux disease Hypertension Enrolled in chronic care management Surgical History History of hysterectomy ZAIRA (still has ovaries). Performed due to fibroids and heavy bleeding. Pfannenstiel incision. History of section, low transverse 2 sections (both vertical incisions) History of lobectomy of lung (~11/2012) Lobectomy for lung cancer will get more details on treatment/surgery with medical records Family History Grandfather Colon cancer Paternal-- dx age 70's Son Colon cancer dx age 47 Mother Diabetes Hypercholesteremia Hypertension Father Diabetes Hypercholesteremia Heart disease Stroke Hypertension Sister Ovarian cancer dx age 30's Denies family history of Breast cancer Uterine cancer Thyroid disease Social History Smoking and tobacco/nicotine status: former use of tobacco/nicotine Physical Exam Const: COMMON NORMALS: patient oriented x3 HENMT: COMMON NORMALS: normocephalic and atraumatic HEAD & SCALP: normocephalic and atraumatic Resp: COMMON NORMALS: normal respiratory effort and clear to auscultation bilaterally EFFORT & INSPECTION: Yes able to speak in complete sentences AUSCULTATION: clear to auscultation bilaterally Cardio: COMMON NORMALS: S1 normal heart sound present and S2 normal heart sound present HEART SOUNDS: S1 normal heart sound present and S2 normal heart sound present GI: COMMON NORMALS: Normal to inspection, nondistended, normoactive bowel sounds present, Soft to palpation and non-tender PALPATION: Yes Soft to palpation : COMMON NORMALS: No no CVA tenderness BLADDER/KIDNEY EXAM: No no CVA tenderness Back/Pelvis: COMMON NORMALS: negative for no CVA tenderness Extremity: COMMON NORMALS: full ROM and capillary refill normal GENERAL: Yes normal exam except as noted and Yes edema (LLE edema) LEFT LOWER EXTREMITY: Yes lower leg (edema) Left lower leg: Yes palpation Neuro: COMMON NORMALS: patient oriented x3 and CN's II-XII intact bilaterally Psych: COMMON NORMALS: mental status grossly normal, cooperative, normal affect and speech normal SPEECH: Yes normal speech Skin: COMMON NORMALS: negative for no rashes or lesions noted and negative for no wounds GENERAL SKIN EXAM: rashes and/or lesions noted Course Vital Signs: Vital signs: Vital Signs Temperature 97.6 F 12/25/24 22:28 Pulse Rate 88 12/25/24 22:28 Respiratory Rate 16 12/25/24 22:28 Blood Pressure 191/102 12/25/24 22:28 Pulse Oximetry 99 12/25/24 22:28 Oxygen Delivery Me thod Room Air 12/25/24 22:28 MDM - Extremity (Nontraumatic) Medical Decision Making Patient is a 69-year-old female that presents to the ED with left lower extremity edema. She also complains of medial distal knee pain on tibial plateau. X-ray of her left knee is negative. Patient has had previous ultrasound of left lower extremity that was negative for DVT. Patient will be placed in Umesh wrap compression, and sent to primary care for follow-up, any concerns of differentials and imaging. All of her questions were answered to her satisfaction. I would not correct her blood glucose at 191 at this time. Patient should follow a low carbohydrate diet and follow-up with her doctor regarding her elevation of blood glucose with the use of prednisone. As well, she should follow a DASH diet due to her elevation of blood pressure. Discussed with patient we do not correct blood pressures in the ED unless the systolic is >220 given concern of syncope. Patient states understanding. Lab Data Radiology Impressions Knee X-Ray 12/25/24 23:05 IMPRESSION: No acute findings. Laboratory Results POC Glucose 191 mg/dL (70-110) H 12/25/24 22:51 All radiology interpretation(s) finalized by discharge ED provider radiology interpretation(s): no acute Discharge Plan Discharge Patient Disposition: Home Clinical Impression: Leg edema, left, Acute pain of left knee Condition: Stable Prescriptions: No Action diclofenac sodium 1 % gel 2 g topical QID PRN (Reason: Pain) Qty: 100 0RF Rx Instructions: apply to single elbow,or hip Ventolin HFA 90 mcg/actuation HFA aerosol inhaler 1 inh INHALATION QID PRN (Reason: Shortness Of Breath) Qty: 18 3RF estradiol [Estrace] 0.01 % (0.1 mg/gram) cream 0.5 g VAGINAL .twice weekly Qty: 42.5 3RF clonidine HCl 0.1 mg tablet 0.1 mg PO Q8H PRN (Reason: For blood pressure greater than 150 systolic) Qty: 30 3RF amlodipine 2.5 mg tablet See Rx Instructions .ROUTE .COMPLEX Qty: 90 1RF Dose Instruction: TAKE 1 TABLET BY MOUTH EVERY DAY Rx Instructions: TAKE 1 TABLET BY MOUTH EVERY DAY lansoprazole [Prevacid] 30 mg capsule,delayed release(DR/EC) 30 mg PO DAILY Qty: 90 1RF rosuvastatin 10 mg tablet 10 mg PO DAILY Qty: 90 1RF valsartan 320 mg tablet 320 mg PO BEDTIME@19 Qty: 90 1RF metronidazole 500 mg tablet 500 mg PO BID Qty: 14 0RF fluticasone propion-salmeterol [Advair HFA] 115-21 mcg/actuation HFA aerosol inhaler See Rx Instructions .ROUTE .COMPLEX Qty: 12 1RF Dose Instruction: INHALE TWO PUFFS BY MOUTH TWICE DAILY Rx Instructions: INHALE TWO PUFFS BY MOUTH TWICE DAILY diclofenac sodium 75 mg tablet,delayed release (DR/EC) See Rx Instructions .ROUTE .COMPLEX Qty: 60 2RF Dose Instruction: TAKE 1 TABLET BY MOUTH TWICE DAILY NEEDED FOR PAIN Rx Instructions: TAKE 1 TABLET BY MOUTH TWICE DAILY NEEDED FOR PAIN potassium chloride 10 mEq capsule, extended release 10 meq PO DAILY Qty: 30 0RF ciprofloxacin HCl [Cipro] 500 mg tablet 500 mg PO BID Qty: 14 0RF prednisone 20 mg tablet 20 mg PO BID Qty: 10 0RF CoQ-10 100 mg Capsule 100 mg PO DAILY Discharge Orders: Discharge ED (Routine); Ordered 12/26/24 Ordered By: Hillary Saenz Referrals: Beverly Warner FNP [Primary Care Provider, Family Practice] Discharge Diet: Low Salt Discharge Activity: Resume usual activity Patient Instructions: Leg Edema (ED), DASH Eating Plan (ED) Activity Restrictions/Additional Instructions: I would recommend that you compress your lower extremity. It would help with the pain if you had a compression sock at least to your knee. Tylenol for pain. Avoid a high salt density diet. A DASH diet has been added for you to follow. Your blood glucose was 191 here. I know that it was elevated at home, and this is associated with the prednisone. Please discuss with your primary care physician on Saturday. Call them for an appointment follow-up. Your x-ray was negative for acute fracture. [facility]please follow up Print Language: Jordanian Coding Level of Care Code ED Nuclear Physician for Kandace Rae
--- NOTE | 2024-12-26 00:57 | PC.NURSE ---
Umesh wrap applied to left knee and lower leg for compression. patient tolerated well.
[2024-12-26 00:58] VITALS: BP 153/87; PULSE 66; RESP 18; O2SAT 97
== END 2024-12-26 01:00 | disposition home or self-care (01) ==
PROVIDERS: Emergency Provider Physician Assistant; PCP Nurse Practitioner Family
DX: M79.605 Pain in left leg (principal); R60.0 Localized edema; I10 Essential (primary) hypertension; J44.9 Chronic obstructive pulmonary disease, unspecified; E78.5 Hyperlipidemia, unspecified; Z87.891 Personal history of nicotine dependence; Z79.899 Other long term (current) drug therapy
CPT/HCPCS: 36416; 73560; 82962; 99284

== ENCOUNTER 2025-01-03 05:00 | Outpatient (RCR) | payer MEDICARE, SELFPAY | END 2025-02-01 23:55 | disposition home or self-care (01) | LOC: TPT 05:00 | PROVIDERS: PCP Nurse Practitioner Family; Visit Provider Nurse Practitioner Family | DX: M25.569 Pain in unspecified knee (principal) | CPT/HCPCS: 97110; 97162 ==

== ENCOUNTER → 2025-01-06 10:42 | Outpatient (BNVA) | payer MEDICARE, SELFPAY | PROVIDERS: PCP Nurse Practitioner Family; Visit Provider Nurse Practitioner Family | DX: J44.1 Chronic obstructive pulmonary disease with (acute) exacerbation (principal) | CPT/HCPCS: 80048 ==

== ENCOUNTER 2025-01-08 09:20 | Outpatient (CLI) | payer MEDICARE, SELFPAY ==
--- NOTE | 2025-01-08 12:29 | MR_ITS ---
WS: [id number] MRI LEFT KNEE HISTORY: M25.562 - Pain in left knee COMPARISON: Radiograph 12/25/2024 Anterior cruciate ligament: Intact. Posterior cruciate ligament: Intact. Medial collateral ligament: Intact. Posterior lateral corner structures: Intact. Medial menisci: Intact. Normal signal, size and shape. Lateral meniscus: Intact. Normal signal, size and shape. Extensor mechanism: Distal quadriceps tendon and patellar tendons are intact. Fluid and soft tissue: No joint effusion. No Washington's cyst. Osseous and articular structures: Patellofemoral compartment: Mild narrowing of the patellofemoral joint. Narrowing is most significant at the patellar eminence and along the medial articular surface. There is a very small amount of subchondral edema at the patellar eminence. Mild chondromalacia at the patellar eminence and medial villagomez llar facet. Medial compartment: Mild narrowing. No marrow edema. Cartilage is well preserved. Lateral compartment: Minimal narrowing. Cartilage is well-preserved. No marrow edema. MR/MR knee LT wo con* [id number] IMPRESSION: 1. No meniscal or ACL tear identified. 2. No joint effusion. 3. Mild patellofemoral compartment narrowing with loss of cartilage. Very mild narrowing of the cartilage at the patellar eminence and over the medial facet. 4. Minimal subchondral edema at the patellar eminence.
== END 2025-01-08 09:21 | disposition home or self-care (01) ==
PROVIDERS: PCP Nurse Practitioner Family; Visit Provider Nurse Practitioner Family
DX: M25.562 Pain in left knee (principal)
CPT/HCPCS: 73721

== ENCOUNTER → 2025-01-25 14:04 | Outpatient (BNVA) | payer MEDICARE, SELFPAY | PROVIDERS: PCP Nurse Practitioner Family; Visit Provider Student in an Organized Health Care Education/Training Program | DX: R12 Heartburn (principal); R19.5 Other fecal abnormalities | CPT/HCPCS: 99204 ==

== ENCOUNTER 2025-02-02 05:00 | Outpatient (RCR) | payer MEDICARE, SELFPAY | END 2025-03-04 23:59 | disposition home or self-care (01) | LOC: TPT 05:00 | PROVIDERS: PCP Nurse Practitioner Family; Visit Provider Nurse Practitioner Family | DX: M25.569 Pain in unspecified knee (principal) | CPT/HCPCS: 97110 ==

== ENCOUNTER → 2025-02-08 09:36 | Outpatient (BNVA) | payer MEDICARE, SELFPAY | PROVIDERS: PCP Nurse Practitioner Family; Visit Provider Nurse Practitioner Family | DX: E87.6 Hypokalemia (principal) | CPT/HCPCS: 80048 ==

== ENCOUNTER → 2025-02-17 11:05 | Outpatient (BNVA) | payer MEDICARE, SELFPAY | PROVIDERS: PCP Nurse Practitioner Family; Visit Provider Nurse Practitioner Family | DX: L57.8 Other skin changes due to chronic exposure to nonionizing radiation (principal); Q82.5 Congenital non-neoplastic nevus; Z12.83 Encounter for screening for malignant neoplasm of skin; L82.0 Inflamed seborrheic keratosis; R20.9 Unspecified disturbances of skin sensation; R20.8 Other disturbances of skin sensation; R23.8 Other skin changes; L53.8 Other specified erythematous conditions | CPT/HCPCS: 17110; 99213 ==

== ENCOUNTER 2025-02-23 09:10 | Day surgery (SDC) | payer MEDICARE, SELFPAY ==
[2025-02-23 09:45] VITALS: BP 195/103; PULSE 71; RESP 16; TEMP 36.4; O2SAT 97; BMI 28.3
--- NOTE | 2025-02-23 10:46 | ANES.PREANE2 ---
Pre-Anesthetic Assessment Height/Weight: Height 1.65 m Weight 77.111 kg Temp Pulse Resp BP Pulse Ox O2 Del Method 97.6 F 71 16 195/103 97 Room Air 02/23/25 09:45 02/23/25 09:45 02/23/25 09:45 02/23/25 09:45 02/23/25 09:45 02/23/25 09:45 Operation Date: 02/23/25 11:00 Proposed Procedures p EGD with Biopsy [id number] G0105 R19.5 R12(Not Applicable) - Beau Hooker MD s Colonoscopy(Not Applicable) - Beau Hooker MD Familial anesthetic complications: none Was Beta Shon taken within 24 hours: N/A Was Clonidine taken within 24 hours: N/A Last intake: Intake Last Liquid Date 02/22/25 Last Liquid Time 21:00 Last Solid Date 02/21/25 Last Solid Time 17:00 Social No alcohol and No tobacco Exam alert, oriented x 3, clear to auscultation bilaterally and regular rate & rhythm Airway Mallampati: Class I Dentition: false Pulmonary Chronic Obstructive Pulmonary Disease (lung cancer) 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, prefers to lay down with pillow propping her up CV/HEM Hypertension Metabolic Diabetes Mellitus Anesthetic Plan ASA status: 4 Anesthesia: MAC Risk of > 500 ml blood loss (7ml/kg in children): No Medications/Allergies Home Medications ?Medication ?Instructions ?Recorded ?Confirmed ?Last Taken ?Type coenzyme Q10 100 mg capsule 100 mg PO DAILY 04/05/23 02/23/25 02/21/25 History (CoQ-10) albuterol sulfate 90 mcg/actuation 1 inh inhalation QID PRN Shortness 04/14/24 02/23/25 02/22/25 Rx aerosol inhaler (Ventolin HFA) Of Breath #18 grams clonidine HCl 0.1 mg tablet 0.1 mg PO Q8H PRN For blood 04/14/24 02/23/25 02/22/25 Rx pressure greater than 150 systolic #30 tabs estradiol 0.01% (0.1 mg/gram) 0.5 g vaginal .twice weekly #42.5 04/14/24 02/23/25 02/21/25 Rx vaginal cream (Estrace) grams amlodipine 2.5 mg tablet See Rx Instructions .Route 07/14/24 02/23/25 02/17/25 Rx .COMPLEX #90 tabs valsartan 320 mg tablet 320 mg PO BEDTIME@19 #90 tabs 07/14/24 02/23/25 02/21/25 Rx diclofenac sodium 75 mg See Rx Instructions .Route 12/21/24 02/23/25 02/17/25 Rx tablet,delayed release .COMPLEX #60 tabs lansoprazole 30 mg capsule,delayed 30 mg PO DAILY #90 caps 01/05/25 02/23/25 02/20/25 Rx release (Prevacid) ondansetron 4 mg disintegrating 4 mg PO Q8H PRN nausea and 02/11/25 02/23/25 02/23/25 Rx tablet vomiting #3 tabs fluticasone propionate 115 2 inh inhalation BID 02/23/25 02/23/25 02/23/25 History mcg-salmeterol 21 mcg/actuation HFA inhaler (Advair HFA) Allergies Allergy/AdvReac Type Severity Reaction Status Date / Time codeine Allergy rash Verified 02/23/25 09:40 Penicillins Allergy rash and Verified 02/23/25 09:40 looses taste Sulfa (Sulfonamide Allergy rash Verified 02/23/25 09:40 Antibiotics) Current Medications Generic Name Dose Route Start Last Admin Trade Name Freq PRN Reason Stop Dose Admin Sodium Chloride 1,000 mls @ 15 mls/hr 02/23/25 09:23 02/23/25 09:55 Sodium Chloride 0.9% IV 02/24/25 09:22 15 mls/hr .Q24H PRN Administration COLONOSCOPY FLUIDS [facility] Anesthesia Medical History No pertinent past medical history neghx: thyroid,dvt/pe PCP: Beverly Warner ADAPTIVE PHYSICAL EDUCATION SPECIALIST [facility]. Had right lobectomy in 11/2012. No chemo or radiation tx Type 2 diabetes mellitus without complication, without long-term current use of insulin Chronic obstructive pulmonary disease Hyperlipidemia Arthritis Gastroesophageal reflux disease Hypertension Enrolled in chronic care management Surgical History History of hysterectomy ZAIRA (still has ovaries). Performed due to fibroids and heavy bleeding. Pfannenstiel incision. History of section, low transverse 2 sections (both vertical incisions) History of lobectomy of lung (~11/2012) Lobectomy for lung cancer will get more details on treatment/surgery with medical records Family History Grandfather Colon cancer Paternal-- dx age 70's Son Colon cancer dx age 47 Mother Diabetes Hypercholesteremia Hypertension Father Diabetes Hypercholesteremia Heart disease Stroke Hypertension Sister Ovarian cancer dx age 30's Denies family history of Breast cancer Uterine cancer Thyroid disease Social History Smoking and tobacco/nicotine status: former use of tobacco/nicotine
--- NOTE | 2025-02-23 11:11 | W.PM.OPSUD ---
Surgery/Procedure H&P Update DATE OF PROCEDURE: February 23, 2025 DATE H&P PERFORMED: 01/25/25 H&P UPDATE INFORMATION: I have reviewed H&P completed within last 30 days, I have examined patient prior to procedure and No changes to prior documentation PLANNED PROCEDURE: Operation Date: 02/23/25 11:00 Proposed Procedures p EGD with Biopsy [id number] G0105 R19.5 R12(Not Applicable) - Beau Hooker MD s Colonoscopy(Not Applicable) - Beau Hooker MD
[2025-02-23 11:39] VITALS: BP 115/60; PULSE 68; RESP 16; TEMP 36.3; O2SAT 94
[2025-02-23 11:52] VITALS: BP 132/77; PULSE 71; RESP 16; O2SAT 96
--- NOTE | 2025-02-23 16:04 | ANE.PACU2 ---
Inpatient post-anesthesia follow up: Airway intact: Yes Vital signs: Temperature 97.3 F Pulse Rate 71 Respiratory Rate 16 Blood Pressure 132/77 Pulse Oximetry 96 Oxygen Delivery Me thod Room Air Oxygen Flow Rate Fraction of Inspir ed Oxygen Hydration adequate: Yes Nausea and vomiting: No Pain level: 1 Mental status: Baseline
== END 2025-02-23 12:06 | disposition home or self-care (01) ==
PROVIDERS: PCP Nurse Practitioner Family; Visit Provider Student in an Organized Health Care Education/Training Program
PROC: 0DJ08ZZ Inspection of Upper Intestinal Tract, Via Natural or Artificial Opening Endoscopic (ICD-10-PCS; principal; 2025-02-23 11:00)
PROC: 0DJD8ZZ Inspection of Lower Intestinal Tract, Via Natural or Artificial Opening Endoscopic (ICD-10-PCS; CPT 45378; 2025-02-23 11:00)
DX: Z12.11 Encounter for screening for malignant neoplasm of colon (principal); K57.30 Diverticulosis of large intestine without perforation or abscess without bleeding; K29.50 Unspecified chronic gastritis without bleeding; K44.9 Diaphragmatic hernia without obstruction or gangrene; J44.9 Chronic obstructive pulmonary disease, unspecified; I10 Essential (primary) hypertension; E11.9 Type 2 diabetes mellitus without complications; R19.5 Other fecal abnormalities; K21.9 Gastro-esophageal reflux disease without esophagitis; Z85.118 Personal history of other malignant neoplasm of bronchus and lung; Z79.899 Other long term (current) drug therapy; Z88.5 Allergy status to narcotic agent; Z88.0 Allergy status to penicillin; Z88.2 Allergy status to sulfonamides; Z80.0 Family history of malignant neoplasm of digestive organs; Z87.891 Personal history of nicotine dependence
CPT/HCPCS: 43239; 88305; G0105; J2704; J7030

== ENCOUNTER 2025-03-05 06:00 | Outpatient (RCR) | payer MEDICARE, SELFPAY | END 2025-04-04 23:59 | disposition home or self-care (01) | LOC: TPT 06:00 | PROVIDERS: PCP Nurse Practitioner Family; Visit Provider Nurse Practitioner Family | DX: M25.569 Pain in unspecified knee (principal) | CPT/HCPCS: 97110 ==

== ENCOUNTER → 2025-03-08 09:18 | Outpatient (BNVA) | payer MEDICARE, SELFPAY | PROVIDERS: PCP Nurse Practitioner Family; Visit Provider Student in an Organized Health Care Education/Training Program | DX: Z09 Encounter for follow-up examination after completed treatment for conditions other than malignant neoplasm (principal) | CPT/HCPCS: 99213 ==

== ENCOUNTER → 2025-03-17 10:17 | Outpatient (BNVA) | payer MEDICARE, SELFPAY | PROVIDERS: PCP Nurse Practitioner Family; Visit Provider Nurse Practitioner Family | DX: E87.0 Hyperosmolality and hypernatremia (principal) | CPT/HCPCS: 80053 ==

== ENCOUNTER 2025-04-05 06:30 | Outpatient (RCR) | payer MEDICARE, SELFPAY | END 2025-05-04 23:59 | disposition home or self-care (01) | LOC: TPT 06:30 | PROVIDERS: PCP Nurse Practitioner Family; Visit Provider Nurse Practitioner Family | DX: M25.569 Pain in unspecified knee (principal) | CPT/HCPCS: 97110 ==

== ENCOUNTER → 2025-04-14 10:32 | Outpatient (BNVA) | payer MEDICARE, SELFPAY | PROVIDERS: PCP Nurse Practitioner Family; Visit Provider Nurse Practitioner Family | DX: E11.9 Type 2 diabetes mellitus without complications (principal); E78.2 Mixed hyperlipidemia | CPT/HCPCS: 80053; 80061; 82043; 83036; 84443; 85025 ==

== ENCOUNTER 2025-05-07 18:13 | Emergency (ER) | payer MEDICARE, SELFPAY ==
[2025-05-07 18:14] VITALS: BP 191/75; PULSE 98; RESP 18; O2SAT 96
--- OUTSIDE RECORDS SUMMARY | 2025-05-07 18:26 | XMS_ITS ---
Author Organization [facility] Address [address] [place] [address] Phone Care Team Providers Care Associate Field Service Engineer Name Role Phone Khai Ayala MD Unavailable [phone] Agustín Batista Primary Care Provider [phone] Active Problems Problem Noted Date Diagnosed Date Lung cancer, upper lobe 06/20/2014 Cancer Staging:Clinical: Unsigned Pathologic:Stage IA(T1a, N0, cM0) - Unsigned Current Treatment and Therapy Plans No current plan information found. Past Treatment and Therapy Plans No past plan information found. Lifetime Dose Tracking * Chemical Lifetime Dose Automatic Entry Manual Entr y Radiation 42.63 mGy 42.63 mGy 0 mGy
--- OUTSIDE RECORDS SUMMARY | 2025-05-07 18:26 | XMS_ITS | Clinical Summary ---
Author Organization [facility] Address [address] [place] [address] Phone Care Team Providers Care Circus Laborer Name Role Phone Khai Ayala MD Unavailable [phone] Agustín Batista Primary Care Provider [phone] Allergies Active Allergy Reactions Criticality Noted Date Comments Codeine 06/04/2014 Influenza Virus Vaccine, Specific 06/04/2014 Other reaction(s): OTHER REACTION Meperidine 06/04/2014 Morphine 06/04/2014 Penicillins 06/04/2014 Medications lisinopril (PRINIVIL,ZESTR IL) 20 MG tablet 4 Active simvastatin (ZOCOR) 20 MG tablet 4 Active aspirin, bulk, 100 % Powd Active ALBUTEROL, BULK, MISC Active esomeprazole (NEXIUM) 20 MG capsule Active mometasone (NASONEX) 50 mcg/actuation nasal spray Active acetaminophen-c odeine (TYLENOL #4) 300-60 mg per tablet 4 Active alum & mag -OH-simeth (MAALOX MAX) 400-400-40 mg/5 mL suspension Take by mouth every 6 (six) hours as needed for indigestion Active dextromethorpha n-guaifenesin (MUCINEX DM) 30-600 mg per 12 hr tablet Take 1 tablet by mouth every 12 (twelve) hours as needed Active naproxen (NAPROSYN) 500 MG tablet TAKE 1 TABLET BY MOUTH TWICE DAILY 5 6 Active ESTRACE 0.01 % (0.1 mg/gram) vaginal cream use 1/2 gram VAGINALLY TWICE A WEEK 4 7 Active Active Problems Problem Noted Date Diagnosed Date Lung cancer, upper lobe 06/20/2014 Cancer Staging:Clinical: Unsigned Pathologic:Stage IA(T1a, N0, cM0) - Unsigned Family History Relation Name Status Comments Father (Age 75) stroke, pe Mother (Age 73) lung cance r Social History Tobacco Use Types Packs/Day Years Used Date Smoking Tobacco: Former Cigarettes 1 25 1 - 05/31/2013 Smokeless Tobacco: Never Alcohol Use Standard Drinks/Week Comments No 0 (1 standard drink = 0.6 oz pur e alcohol) Comments No Sex and Gender Information Value Date Recorded Sex Assigned at Not on file Legal Sex Female 4:32 PM FOREIGN POLICY OFFICER Gender Identity Not on file Sexual Orientation Not on file Last Filed Vital Signs Vital Sign Reading Time Taken Comments Blood Pressure 107/75 06/14/2017 10:41 AM FOREIGN POLICY OFFICER Pulse 72 06/14/2017 10:41 AM FOREIGN POLICY OFFICER Temperature 36.8 C (98.3 F) 06/14/2017 10:41 AM FOREIGN POLICY OFFICER Respiratory Rate 18 06/14/2017 10:41 AM FOREIGN POLICY OFFICER Oxygen Saturation 97% 06/14/2017 10:41 AM FOREIGN POLICY OFFICER Inhaled Oxygen Concentration - - Weight 74.6 kg (164 lb 6.4 oz) 06/14/2017 10:41 AM FOREIGN POLICY OFFICER Height 162.6 cm (5' 4 ) 06/14/2017 10:41 AM FOREIGN POLICY OFFICER Body Mass Index 28.22 06/14/2017 10:41 AM FOREIGN POLICY OFFICER Plan of Treatment Health Maintenance Due Date Last Done Comments Colonoscopy Every 6 Months 1955 Colorectal Cancer Screening Annual FOBT/FIT Test 11/18 Colorectal Cancer Screening Cologuard 1955 Colorectal Cancer Screening Flex Sigmoidoscopy 956 Annual Depression Screening 11/18/1966 Hepatitis C Antibody Screen 11/18/1973 Mammogram 1995 Colorectal CA Screen 10 Year Colonoscopy 11/18/2000 Colorectal Cancer Screening 11/18/2000 Pneumococcal Vaccine Age 50+ (1 of 1 - PCV) 11/18/2005 Bone Density 11/18/2020 Flu Vaccine (#1) 04/05/2025 Influenza Vaccine 04/05/2025 RSV Immunization Pa tients or 60+ Years (1 - 1-dose 75+ series) 11/18/2030 Insurance MEDICARE [employer] CRUZ[employer]O GOMEZ [id number] Care Teams Circus Laborer Relationship Specialty Start Date End Date Agustín Batista [address] [place] [address] PCP - General 07/12/17 Khai Ayala MD [address] [address] [place] [id number] Physician Hematology and Oncology 09/03/14
--- OUTSIDE RECORDS SUMMARY | 2025-05-07 18:26 | XMS_ITS | Clinical Summary ---
Author Organization [employer] Address [address] [facility] Attn: Epic Prelude ADT JANET CAMACHO [address] Care Team Providers Care Textile Machinery Instructor Name Role Phone Unavailable Primary Care Provider Unavailabl e Encounters Date Type Department Care Team Description 04/20/2025 External Device Data ST[facility] ABSTRACTION Provider, Abstract 03/09/2025 External Device Data ST[facility] ABSTRACTION Provider, Abstract 02/17/2025 External Device Data ST[facility] ABSTRACTION Provider, Abstract 02/16/2025 External Device Data STL ABSTRACTION Provider, Abstract from Last 3 Months Social History Tobacco Use Types Packs/Day Years Used Date Smoking Tobacco: Never Assessed Comments Unknown Sex and Gender Information Value Date Recorded Sex Assigned at Not on file Legal Sex Female 12:37 PM CDT Gender Identity Not on file Sexual Orientation Not on file Plan of Treatment Health Maintenance Due Date Last Done Comments DTAP/TDAP/TD VACCINES (1 - Tdap) 11/18/1974 BREAST CANCER SCREENING 1995 COLORECTAL SCREENING 11/18/2000 Colorectal Cancer Screening 11/18/2000 FIT-DNA Q 3 years 11/18/2000 FIT/FOBT Q 1 year 11/18/2000 Flex Sig/CT Colonography Q 5 years 11/18/2000 PNEUMOCOCCAL VACCINE 50+ YEARS (1 of 1 - PCV) 11/19/19 06 ZOSTER VACCINE (1 of 2) 11/18/2005 OSTEOPOROSIS SCREENING 11/18/2020 INFLUENZA VACCINE (#1) 2025 RSV VACCINE (60+ or ) (1 - 1-dose 75+ series) 11/18/2030
--- NOTE | 2025-05-07 19:01 | W.ED.EXTPRO ---
HPI - Extremity Problem General: Chief complaint: Extremity Injury, Lower Stated complaint: severe legs/ hip pain causing High BP Time Seen by Provider: 05/07/25 18:21 History of Present Illness: Patient is 69-year-old female, HTN, currently in physical therapy due to low back pain, had worsening left low back pain radiating to down laterally the side of her leg the last 1 week. This was a lot worse today. She had issues in physical therapy. She did try the stretches from the physical therapist which did not seem to help. She did not have significant injury when this started hurting. She cannot sleep due to the pain, however worsening today. No urinary bladder incontinence or inability to void. Associated symptoms: Deny chest pain, fever(s) or rash Related Data Home Medications ?Medication ?Instructions ?Recorded ?Confirmed coenzyme Q10 100 mg capsule 100 mg PO DAILY 04/05/23 04/14/25 (CoQ-10) Previous Rx's ?Medication ?Instructions ?Recorded estradiol 0.01% (0.1 mg/gram) 0.5 g vaginal .twice weekly #42.5 04/14/24 vaginal cream (Estrace) grams lansoprazole 30 mg capsule,delayed 30 mg PO DAILY #90 caps 01/05/25 release (Prevacid) sucralfate 100 mg/mL oral 10 ml PO BID 30 days #840 mL 03/08/25 suspension albuterol sulfate 90 mcg/actuation 2 inh inhalation QID PRN Shortness 04/14/25 aerosol inhaler (Ventolin HFA) Of Breath #18 grams amlodipine 5 mg tablet See Rx Instructions .Route 04/14/25 .COMPLEX #90 tabs clonidine HCl 0.1 mg tablet 0.1 mg PO Q8H PRN For blood 04/14/25 pressure greater than 160 systolic #30 tabs fluticasone propionate 115 2 inh inhalation BID #12 grams 04/14/25 mcg-salmeterol 21 mcg/actuation HFA inhaler (Advair HFA) valsartan 320 mg tablet 320 mg PO BEDTIME@19 #90 tabs 04/14/25 methocarbamol 500 mg tablet 500 mg PO Q8H PRN muscle spasm #30 05/07/25 tabs methylprednisolone 4 mg tablets in See Rx Instructions PO .COMPLEX 05/07/25 a dose pack (Medrol (Galileo)) #21 ea Allergies Allergy/AdvReac Type Severity Reaction Status Date / Time codeine Allergy rash Verified 04/14/25 09:01 Penicillins Allergy rash and Verified 04/14/25 09:01 looses taste Sulfa (Sulfonamide Allergy rash Verified 04/14/25 09:01 Antibiotics) Review of Systems Const: Denies: fever(s), chills or fatigue Eyes: Denies: change in vision, eye discharge or eye redness ENMT: Denies: throat pain, ear or mastoid pain, nasal discharge, post nasal drip or sinus pain Card: Denies: chest pain, palpitations or swelling of feet/ankles Resp: Denies: dyspnea, non-productive cough or wheezing GI: Reports: heartburn; Denies: abdominal pain, vomiting or diarrhea : Denies: flank pain, difficulty voiding or dysuria Musc: Denies: extremity pain or extremity swelling Skin/Breast: Denies: rash, pruritus or erythema Neuro: Denies: headache(s), numbness in extremities or weakness in extremities Psych: Denies: suicidal ideation or homicidal ideation PFS ED PFSH: Medical History (Updated 05/07/25 @ 19:41 by AGNES Hopkins) No pertinent past medical history neghx: thyroid,dvt/pe PCP: Beverly LEACHOtf Lung cancer Dx in 2012. Had right lobectomy in 11/2012. No chemo or radiation tx Type 2 diabetes mellitus without complication, without long-term current use of insulin Chronic obstructive pulmonary disease Hyperlipidemia Arthritis Gastroesophageal reflux disease Hypertension Enrolled in chronic care management Surgical History History of hysterectomy ZAIRA (still has ovaries). Performed due to fibroids and heavy bleeding. Pfannenstiel incision. History of section, low transverse 2 sections (both vertical incisions) History of lobectomy of lung (~11/2012) Lobectomy for lung cancer will get more details on treatment/surgery with medical records Family History Grandfather Colon cancer Paternal-- dx age 70's Son Colon cancer dx age 47 Mother Diabetes Hypercholesteremia Hypertension Father Diabetes Hypercholesteremia Heart disease Stroke Hypertension Sister Ovarian cancer dx age 30's Denies family history of Breast cancer Uterine cancer Thyroid disease Social History Smoking and tobacco/nicotine status: former use of tobacco/nicotine Physical Exam Const: COMMON NORMALS: no acute distress and patient oriented x3 GENERAL APPEARANCE: cooperative and comfortable HENMT: COMMON NORMALS: normocephalic, atraumatic, hearing grossly normal bilaterally, EAC's normal and Normal external nose present HEAD & SCALP: normal to inspection, normocephalic and atraumatic FACE & SINUS: normal facial exam NOSE: Normal external nose present and Normal nares present EXTERNAL AUDITORY CANAL: EAC's normal THROAT: posterior oropharynx normal Eye: COMMON NORMALS: Equal, round and reactive pupils present GENERAL EYE: appearance normal, both eyes and all related structures PUPIL: Yes Equal, round and reactive pupils present Neck/C-Spine: COMMON NORMALS: no lymphadenopathy, supple and No carotid bruits Chest: CHEST: Yes Symmetrical chest wall rise Resp: COMMON NORMALS: normal respiratory effort and clear to auscultation bilaterally EFFORT & INSPECTION: Yes able to speak in complete sentences and Yes symmetric chest movement AUSCULTATION: clear to auscultation bilaterally Cardio: COMMON NORMALS: regular rate and regular rhythm RATE: regular rate RHYTHM: regular rhythm GI: COMMON NORMALS: Normal to inspection, nondistended, normoactive bowel sounds present and Soft to palpation INSPECTION: Yes normal to inspection AUSCULTATION: Yes normoactive bowel sounds PALPATION: Yes Soft to palpation : COMMON NORMALS: Yes no CVA tenderness BLADDER/KIDNEY EXAM: Yes no CVA tenderness Back/Pelvis: COMMON NORMALS: no CVA tenderness SACRUM: tenderness on the left Extremity: COMMON NORMALS: no calf tenderness and no pedal edema Neuro: COMMON NORMALS: patient oriented x3, moves all extremities and gait normal Psych: COMMON NORMALS: mental status grossly normal, Normal thought process present, cooperative, normal affect, speech normal and activity/motor behavior normal SPEECH: Yes normal speech THOUGHT PROCESS: Normal thought process present Skin: COMMON NORMALS: no rashes or lesions noted GENERAL SKIN EXAM: no rashes or lesions noted Course Vital Signs: Vital signs: Vital Signs Pulse Rate 98 05/07/25 18:14 Respiratory Rate 18 05/07/25 18:14 Blood Pressure 191/75 05/07/25 18:14 Pulse Oximetry 96 05/07/25 18:14 Oxygen Delivery Me thod Room Air 05/07/25 18:14 MDM - Extremity (Nontraumatic) Medical Decision Making Patient is a 69-year-old female that states she is improved after reevaluation. She will be discharged home with Medrol Dosepak and methocarbamol. All of her questions answered to her satisfaction Medical Records I reviewed the patient's medical records. No radiology studies performed this visit Discharge Plan Discharge Patient Disposition: Home Clinical Impression: Sciatica of left side Condition: Stable Prescriptions: New methocarbamol 500 mg tablet 500 mg PO Q8H PRN (Reason: muscle spasm) Qty: 30 0RF methylprednisolone [Medrol (Galileo)] 4 mg tablets,dose pack See Rx Instructions .ROUTE .COMPLEX Qty: 21 0RF Rx Instructions: for 6 days No Action estradiol [Estrace] 0.01 % (0.1 mg/gram) cream 0.5 g VAGINAL .twice weekly Qty: 42.5 3RF valsartan 320 mg tablet 320 mg PO BEDTIME@19 Qty: 90 1RF amlodipine 5 mg tablet See Rx Instructions .ROUTE .COMPLEX Qty: 90 1RF Dose Instruction: TAKE 1 TABLET BY MOUTH EVERY DAY Rx Instructions: TAKE 1 TABLET BY MOUTH EVERY DAY clonidine HCl 0.1 mg tablet 0.1 mg PO Q8H PRN (Reason: For blood pressure greater than 160 systolic) Qty: 30 1RF Ventolin HFA 90 mcg/actuation HFA aerosol inhaler 2 inh INHALATION QID PRN (Reason: Shortness Of Breath) Qty: 18 1RF fluticasone propion-salmeterol [Advair HFA] 115-21 mcg/actuation HFA aerosol inhaler 2 inh inhalation BID Qty: 12 5RF Rx Instructions: INHALE TWO PUFFS BY MOUTH TWICE DAILY sucralfate 100 mg/mL suspension 10 ml PO BID 30 Days Qty: 840 5RF lansoprazole [Prevacid] 30 mg capsule,delayed release(DR/EC) 30 mg PO DAILY Qty: 90 1RF coenzyme Q10 [CoQ-10] 100 mg Capsule 100 mg PO DAILY Discharge Orders: Discharge ED (Routine); Ordered 05/07/25 Ordered By: Hillary Saenz Referrals: Beverly Warner, HEMATOLOGY NURSE [Primary Care Provider, Family Practice] Discharge Diet: Usual diet Discharge Activity: Limit activity as instructed Patient Instructions: Sciatica (ED), Patient Portal & [facility] Instructions Activity Restrictions/Additional Instructions: - Medrol Dosepak and methocarbamol is at the pharmacy. Utilize as directed. Methocarbamol is a muscle relaxer, caution on sedation. - Call your primary care physician for a follow-up - Ice this area tonight and take Tylenol -Do not carry over half gallon of milk times until follow-up with primary care - Return to ED if you have numbness in your groin, inability to urinate or have a bowel movement due to groin numbness and pain in your mid back area or fever greater than 100.4 ?F Print Language: New Zealander Coding Level of Care Code ED Traffic Attendant for Kandace Rae
[2025-05-07] MEDS: orphenadrine 30 mg/mL Inj 2 mL IM (19:17)
== END 2025-05-07 19:49 | disposition home or self-care (01) ==
PROVIDERS: Emergency Provider Physician Assistant; PCP Nurse Practitioner Family
DX: M54.32 Sciatica, left side (principal); Z87.891 Personal history of nicotine dependence; E11.9 Type 2 diabetes mellitus without complications; E78.5 Hyperlipidemia, unspecified; I10 Essential (primary) hypertension; Z85.118 Personal history of other malignant neoplasm of bronchus and lung
CPT/HCPCS: 96372; 99284; J1100; J1885; J2360

== ENCOUNTER 2025-06-02 08:06 | Outpatient (RCR) | payer MEDICARE, SELFPAY | END 2025-06-04 23:59 | disposition home or self-care (01) | LOC: TPT 08:06 | PROVIDERS: PCP Nurse Practitioner Family; Visit Provider Nurse Practitioner Family | DX: M25.569 Pain in unspecified knee (principal) | CPT/HCPCS: 97110; 97140 ==

== ENCOUNTER 2025-06-18 08:34 | Outpatient (RCR) | payer MEDICARE, SELFPAY | END 2025-06-21 09:54 | disposition home or self-care (01) | LOC: TPT 08:34 | PROVIDERS: PCP Nurse Practitioner Family; Visit Provider Nurse Practitioner Family | DX: M25.569 Pain in unspecified knee (principal) | CPT/HCPCS: 97110 ==